=== PATIENT | female | born 1970 | race Caucasian/White ===

== ENCOUNTER → 2019-06-26 | Outpatient (CLI) | payer OTHER ==
--- NOTE | 2019-07-05 02:23 | ECWPNPC ---
PATIENT NAME: JAMMIE SAMUELS : 1970 GENDER: FEMALE VISIT DATE: 06/26/2019 DISCHARGE DATE: 06/26/19 1621 VISIT LOCKED DATE TIME: PHYSICIAN: LELIA KIRK MD RESOURCE: LELIA KIRK MD REASON FOR APPOINTMENT 1. LOW BACK & LEFT LEG HISTORY OF PRESENT ILLNESS HISTORY OF PRESENT ILLNESS: PAIN THE PATIENT DESCRIBES THE PAIN... 48 YEAR OLD FEMALE PATIENT WITH A HISTORY OF LOW BACK AND LEG PAIN. THE PATIENT DESCRIBES THE PAIN SHARP, STABBING, SHOOTING, DAILY, AND CONTINUOUS WITH A PAIN SCORE OF 7-9/10 DEPENDING ON PHYSICAL ACTIVITY. THE PATIENT STATES HER PAIN BEGINS IN HER LOW BACK AND RADIATES DOWN MAINLY HER LEFT LEG AND INTO HER FEET WITH TINGLING, "NEEDLES," AND BURNING SENSATIONS. THE PATIENT SAYS HER PAIN SPONTANEOUSLY BEGAN AROUND A YEAR AGO. THE PATIENT STATES HER PAIN IS AFFECTING HER ABILITY TO PERFORM HER DAILY ACTIVITIES SUCH HANGING LAUNDRY, CLEANING HER HOUSE, MAKING HER BED, MOPPING, AND SWEEPING. THE PATIENT SAYS SHE HAS BEEN USING ALEVE AND TYLENOL FOR PAIN RELIEF, HOWEVER THEY ARE NO LONGER HELPING MUCH ANYMORE. PATIENT DENIES UNEXPLAINABLE WEIGHT LOSS, FEVER, CHILLS, NEW CHANGES ON HER URINARY OR BOWEL CONTROL. FALL RISK SCREENING: SCREENING :NO FALLS REPORTED IN THE LAST YEAR CURRENT MEDICATIONS TAKING TYLENOL 325 MG TABLET 1 TABLET NEEDED ORALLY EVERY 4 HRS TAKING ALEVE 220 MG TABLET 1 TABLET WITH FOOD OR MILK NEEDED ORALLY EVERY 12 HRS MEDICATION LIST REVIEWED AND RECONCILED WITH THE PATIENT PAST MEDICAL HISTORY HYPERTENSION ALLERGIES N.K.D.A. SURGICAL HISTORY TUBAL LIGATION 09/1992 TONSILLECTOMY, ADNOID REMOVAL SURGICAL REMOVAL OF TEETH 03/2008 FAMILY HISTORY FATHER: 76 YRS, DIAGNOSED WITH DIABETES, HEART DISEASE, CANCER MOTHER: 74 YRS, CANCER SIBLINGS: ALIVE SOCIAL HISTORY GENERAL: TOBACCO USE ARE YOU A:CURRENT SMOKER ARE YOU INTERESTED IN QUITTING?THINKING ABOUT QUITTING PREVIOUS QUIT ATTEMPTS?YES, WITHIN THE LAST 6 MONTHS. COUNSELED THE PATIENT ON SMOKING CESSATION, EDUCATION [id number]/28/2019 PATIENT COUNSELED ON THE DANGERS OF TOBACCO USE AND URGED TO QUIT:06/26/2019 EDUCATION LEVEL OF EDUCATION:HIGH SCHOOL NOT COMPLETED DIET: REGULAR. LANGUAGE LANGUAGES SPOKEN:ARGENTINE NEW PATIENT PAIN DIARY PATIENT DESCRIBES PAIN :ACHING, BURNING, HAVE IT ALL THE TIME, IT COMES AND GOES, SHOOTING FROM 0-10, WHAT LEVEL IS YOUR PAIN TODAY?7 PRECIPITATING FACTORS MOVEMENT, HOUSECLEANING, CARRYING THINGS ALLEVIATING FACTORS REST, SITTING DOWN IMPACT ON FUNCTION HAD TO QUIT JOB DUE TO PAIN IS THERE A CHANCE YOU COULD BE ?NO HAVE YOU BEEN SICK IN THE LAST WEEK (COLD, COUGH, FEVER, FLU, ETC)YES COUGH, BELIEVE IT IS DUE TO SMOKING DO YOU TAKE ANY BLOOD THINNERS?NO DO YOU HAVE ANY RASHES OR OPEN SORES?NO ANY CHANGE IN BOWEL OR BLADDER CONTROL?NO ARE YOU ALLERGIC TO SHELLFISH OR IV DYE?NO ARE YOU DIABETIC?NO DO YOU HAVE A PACEMAKER OR DEFIBRILLATOR?NO ANY NEW PROBLEMS WITH MEDICINES OR NEW ALLERGIESNO ANY NEW PATTERNS OF PAIN OR NUMBNESS?NO ANY CHANGE IN YOUR MEDICAL CONDITION?NO HAVE YOU FALLEN IN THE LAST 6 MONTHS?YES TRIPPED, BRUISED KNEE, NO REPORT TO ED DO YOU USE ANY TYPE OF TOBACCO (SMOKE, SMOKELESS, CHEW, ETC.)YES ARE YOU ABUSED, NEGLECTED, OR IN AN UNSAFE ENVIRONMENT?NO DO YOU HAVE THOUGHTS OF HURTING YOURSELF OR SOMEONE ELSE?NO DO YOU NEED ANY PRESCRIPTIONS?NO DO YOU HAVE ANY OTHER QUESTIONS OR CONCERNS?NO EXERCISE: NONE, NO REGULAR EXERCISE. LEARNING BARRIERS / SPECIAL NEEDS BARRIERS TO LEARNING?NO HEARING IMPAIRED?NO VISION IMPAIRED?YES COGNITIVELY IMPAIRED?YES LEARNING DISABILITIES READINESS TO LEARN?YES LEARNING PREFERENCES?NO LEARNING CAPABILITIES PRESENT?YES PAIN CLINIC PFS, CLERGY, PUBLIC HEALTH REFERRALS WAS THE PROVIDER NOTIFIED OF ANY PERTINENT INFO?YES HAS THE PATIENT BEEN EDUCATED REGARDING HIS/HER PLAN OF CARE?YES HAS THE PATIENT BEEN EDUCATED REGARDING PAIN, THE RISK FOR PAIN, THE IMPORTANCE OF EFFECTIVE PAIN MANAGEMENT, AND THE PAIN ASSESSMENT PROCESS?YES LATEX QUESTIONNAIRE LATEX ALLERGY : HAVE YOU EVER DEVELOPED ANY TYPE OF REACTION AFTER HANDLING LATEX PRODUCTS SUCH RUBBER GLOVES, CONDOMS, DIAPHRAGMS, BALLOONS, SOCKS, OR UNDERWEAR?NO LATEX ALLERGY : HAVE YOU EVER DEVELOPED ANY TYPE OF REACTION DURING OR AFTER DENTAL APPOINTMENT, VAGINAL/RECTAL EXAMINATION, SURGICAL PROCEDURE, OR ANY OTHER EXPOSURE?NO LATEX RISK : HAVE YOU EVER HAD ANY DIFFICULTY BREATHING OR HIVES AFTER EATING OR HANDLING ANY FRUITS, OR VEGETABLES; SUCH KIWI, BANANAS, STONE FRUITS, OR CHESTNUTSNO LATEX RISK : DO YOU HAVE A PREVIOUS PERSONAL HISTORY OF MORE THAN NINE SURGERIES, SPINA BIFIDA, OR REPEATED CATHERIZATIONS? NO LATEX RISK : ARE YOU FREQUENTLY EXPOSED TO LATEX PRODUCTS IN YOUR OCCUPATION?NO DATE ASKED : 06/26/2019 CAFFEINE CAFFEINE USE?YES 2-3 CUPS PER DAY ADVANCE DIRECTIVE ADVANCE DIRECTIVE DISCUSSED WITH PATIENT:YES PT STATES THAT SHE DOES NOT HAVE ANY ADVANCED DIRECTIVES AT THIS TIME AND DECLINES ASSISTANCE AT THIS TIME MARITAL STATUS: SINGLE. OCCUPATION: [employer]. HOSPITALIZATION/MAJOR DIAGNOSTIC PROCEDURE NO HOSPITALIZATION HISTORY. REVIEW OF SYSTEMS REVIEWED BY: PROVIDER: LELIA KIRK MD . CONSTITUTIONAL: ANY CHANGE IN YOUR MEDICAL CONDITION? NO . CHILLS NO . FEVER NO . INFECTION: DO YOU HAVE NEW INFECTIONS? NO . DO YOU HAVE HISTORY OF MRSA? NO . MUSCULOSKELETAL: ANY NEW PATTERNS OF PAIN OR NUMBNESS? PAIN FIRST STARTED IN MAY OF 2018, LOW BACK AND GOES DOWN LEFT LEG INITALLY AND NOW IS RADIATING DOWN BOTH LEGS, NUMBNESS AND BURNING . GASTROENTEROLOGY: ANY NEW CHANGE IN BOWEL CONTROL? NO . GENITOURINARY: ANY NEW CHANGE IN BLADDER CONTROL? NO . IS THERE A CHANCE YOU COULD BE ? NO . HEMATOLOGY/LYMPH: DO YOU TAKE ANY BLOOD THINNERS? (FOR EXAMPLE- COUMADIN, PLAVIX, AGGRENOX, PLATEL, PRADAXA, OR XARELTO) NO . WHEN WAS YOUR LAST DOSE? DATE: TIME: . NEUROLOGY: HAVE YOU FALLEN IN THE PAST 12 MONTHS? NO . ANY NEW EXTREMITY NUMBNESS OR WEAKNESS? NO . CARDIOLOGY: DO YOU HAVE A PACEMAKER OR DEFIBRILLATOR? NO . RESPIRATORY: HAVE YOU BEEN SICK IN THE PAST WEEK? NO . FEVER NO . FLU LIKE SYMPTOMS? NO . COUGH NO . INTEGUMENTARY: DO YOU HAVE ANY RASHES OR OPEN SORES? NO . ALLERGIC/IMMUNO: ARE YOU ALLERGIC TO IV DYE? NO . ANY NEW ALLERGIES? NO . PSYCHIATRIC: DO YOU HAVE THOUGHTS OF HURTING YOURSELF OR SOMEONE ELSE? NO . ARE YOU ABUSED, NEGLECTED, OR IN AN UNSAFE ENVIRONMENT? NO . ENDOCRINOLOGY: ARE YOU DIABETIC? NO . OTHER: DO YOU NEED ANY PRESCRIPTIONS? NO . IF YES, PLEASE LIST: ____ . ANY NEW PROBLEMS WITH YOUR MEDICATIONS? NO . WHEN DID YOU LAST EAT? ____ . WHEN DID YOU LAST DRINK? ____ . WHAT DID YOU LAST DRINK? ____ . NAME OF PERSON DRIVING YOU HOME? ____ . DO YOU HAVE ANY OTHER QUESTIONS OR CONCERNS PT STATES THAT SHE IS GOING FOR SURGICAL CONSULTATION AT [facility] ON April WITH MD MCDONALD . VITAL SIGNS WT 176.8 LBS, HT 64 IN, BMI 30.34 INDEX, BP 157/76 MM HG, HR 87 /MIN, RR 16 /MIN, TEMP 97.7 F, OXYGEN SAT % 97%, SAFE IN ENV? (Y/N) Y, NA INITIALS SC 14:58, REVIEWED BY: MARGARITA. EXAMINATION GENERAL EXAMINATION: PATIENT IS ALERT O X 3 AND COOPERATIVE. LUNGS CLEAR, TO AUSCULTATION. HEART: NO MURMURS OR GALLOPS; FACIAL CRANIAL NERVES ARE GROSSLY NORMAL. GOOD SYMMETRY OF FACIAL MUSCLE MOVEMENT. NORMAL VISUAL KABA. PATIENT STANDS WITH CURVATURE IN HER BACK AND WHEN SHE TRIES TO STRAIGHTEN, SHE EXPERIENCES PAIN THROUGH HER BACK. TENDERNESS IN THE LOW BACK AREA, ESPECIALLY ON THE LEFT SIDE. LEFT LEG IS WEAKER AT EXTENSION AND FLEXION. STRAIGHT LEG RAISE OF THE LEFT LEG IS POSITIVE AT 30 DEGREES FOR RADICULOPATHY. MRI OF THE LUMBAR SPINE DONE ON 03/19/2019 SHOWS SEVERE SPINAL STENOSIS AT L4-L5, HYPERTROPHIC LIGAMENTUM FLAVUM, AND EDEMA OVER THE FACET JOINT AT MULTIPLE LEVELS. ASSESSMENTS INTERVERTEBRAL DISC DISORDER WITH RADICULOPATHY OF LUMBAR REGION - M51.16 (PRIMARY) INTERVERTEBRAL DISC DISORDER WITH RADICULOPATHY OF LUMBOSACRAL REGION - M51.17 SPINAL STENOSIS OF LUMBAR REGION, UNSPECIFIED WHETHER NEUROGENIC CLAUDICATION PRESENT - M48.061 SPONDYLOSIS OF LUMBAR REGION WITHOUT MYELOPATHY OR RADICULOPATHY - M47.816 SPONDYLOSIS OF LUMBOSACRAL REGION WITHOUT MYELOPATHY OR RADICULOPATHY - M47.817 TREATMENT INTERVERTEBRAL DISC DISORDER WITH RADICULOPATHY OF LUMBAR REGION CLINICAL NOTES: WE DISCUSSED SEVERAL ISSUES WITH MS. SAMUELS'S PAIN MANAGEMENT CASE. THE PATIENT SAYS SHE IS BEING SEEN AT ANOTHER CLINIC SHE IS PLANNING TO HAVE SPINE SURGERY DONE. I DISCUSSED WITH THE PATIENT THAT SHE MAY BE A CANDIDATE FOR A LUMBAR EPIDURAL, HOWEVER THE PATIENT PREFERS NOT TO DO ANY INJECTION THERAPY AT THIS TIME. I EXPLAINED TO THE PATIENT THAT OUR CLINIC IS MAINLY INJECTION THERAPY, THEREFORE I AM REFERRING THE PATIENT TO PALLIATIVE CARE PROGRAM TO CONSIDER CONTINUING MEDICATION MANAGEMENT FOR HER. I STARTED THE PATIENT ON GABAPENTIN 300 MG AND PROVIDED A SCHEDULE FOR HER TO SLOWLY INCREASE THE MEDICATION UP TO 3 TABLETS DAILY, IN ORDER TO AVOID ANY ADVERSE SIDE EFFECTS. I ADVISED THE PATIENT TO CALL TO BE SEEN FOR INJECTION THERAPY IN THE FUTURE. INSTRUCTIONS WERE GIVEN, QUESTIONS WERE ANSWERED, PATIENT REPORTS UNDERSTANDING AND AGREES WITH THE PLAN. I, CL ALCARAZ, DOCUMENTED THE ABOVE INFORMATION ACTING A SCRIBE FOR DR. KIRK. I HAVE REVIEWED THE ABOVE DOCUMENT, WRITTEN BY CL DACOSTAIBNichole AND I VERIFY THAT IT IS ACCURATE. DEAR EDUIN DUARTE: THANK YOU FOR YOUR KIND REFERRAL OF JAMMIE SAMUELS. IF YOU WANT TO DISCUSS HER CASE WITH ME PLEASE CALL ME AT THE PAIN CENTER AT [phone]. SINCERELY, LELIA KIRK MD PAIN MEDICINE . OTHERS START GABAPENTIN CAPSULE, 300 MG, 1 CAPSULE, ORALLY, THREE TIMES DAILY MDD3, 30 DAY(S), 90, REFILLS 1 NOTES: PRINTED MATERIAL ON GABAPENTIN, REVIEWED WITH PT . PROCEDURE CODES FA211 ESTABILISHED PATIENT [facility] FACILITY CHARGE [id number] CURRENT MEDS W/DOSAGES DOCUMENTED G8730 PAIN ASSESS POS TOOL F/U PLAN DOC DISPOSITION & COMMUNICATION FOLLOW UP REASON: REFER TO PALLIATIVE CARE FOR MED MANAGE ELECTRONICALLY SIGNED BY LELIA KIRK MD, MD ON 07/04/2019 AT 11:20 AM EDT DISCLAIMER : THIS IS A VISIT SUMMARY EXTRACTED FROM THE [employer] CHART. IT IS NOT A COPY OF THE [employer] PROGRESS NOTE. JOHANNAD
== END ==
LOC: M PAIN 14:45
PROVIDERS: ATTEND Anesthesiology
DX: M51.16 Intervertebral disc disorders with radiculopathy, lumbar region (principal); M51.17 Intervertebral disc disorders with radiculopathy, lumbosacral region; G89.29 Other chronic pain; M48.061 Spinal stenosis, lumbar region without neurogenic claudication; M47.816 Spondylosis without myelopathy or radiculopathy, lumbar region; M47.817 Spondylosis without myelopathy or radiculopathy, lumbosacral region; I10 Essential (primary) hypertension; F17.210 Nicotine dependence, cigarettes, uncomplicated; Z79.899 Other long term (current) drug therapy

== ENCOUNTER 2022-02-28 12:44 | Inpatient (IN) | payer OTHER ==
[2022-02-28 13:49] LABS: BASO # 0.1 10^3/uL (0.0-0.2); BASO % 0.4 % (0.0-1.0); EOS % 0.1 % (0.0-3.0); HEMATOCRIT 40.8 % (36.0-47.0); HEMOGLOBIN 13.3 g/dl (12.0-15.5); LYMPH # 0.9 10^3/uL (1.5-5.0); LYMPH % 4.9 % (24.0-44.0); MEAN CORPUSCULAR HEMOGLOBIN 32.5 pg (27.0-33.0); MEAN CORPUSCULAR HGB CONC 32.6 g/dl (32.0-36.5); MEAN CORPUSCULAR VOLUME 99.8 fl (80.0-96.0); MONO # 1.1 10^3/uL (0.0-0.8); MONO % 5.6 % (2.0-8.0); NEUTROPHILS # 17.1 10^3/uL (1.5-8.5); NEUTROPHILS % 88.4 % (36.0-66.0); PLATELET COUNT, AUTOMATED 414 10^3/uL (150-450); RED BLOOD COUNT 4.09 10^6/uL (4.00-5.40); WHITE BLOOD COUNT 19.3 10^3/uL (4.0-10.0)
[2022-02-28] MEDS ORDERED: LISI20TA33 PO (14:05)
[2022-02-28] MEDS ORDERED: JARD1TAB PO (14:05)
[2022-02-28] MEDS ORDERED: NICO1DIS12 TD (14:05)
[2022-02-28] MEDS ORDERED: AMLO1TAB25 PO (14:05)
[2022-02-28] MEDS ORDERED: HYDR-3363 PO (14:05)
[2022-02-28] MEDS ORDERED: MELA5TAB7 PO (14:05)
[2022-02-28] MEDS ORDERED: ATOR80TA59 PO (14:05)
[2022-02-28] MEDS ORDERED: INSU100I34 SQ (14:05)
[2022-02-28] MEDS ORDERED: GABA-283 PO (14:05)
[2022-02-28] MEDS ORDERED: ASPI81TA26 PO (14:05)
[2022-02-28] MEDS ORDERED: HOME MED LIST COMPLETE! XX SCH (14:10)
[2022-02-28 14:12] LABS: CALCIUM LEVEL 11.1 MG/DL (8.5-10.1); CREATININE FOR GFR 1.29 MG/DL (0.55-1.30); GLOMERULAR FILTRATION RATE 46.4 (>51); POTASSIUM SERUM 5.5 MEQ/L (3.5-5.1)
[2022-02-28 14:21] LABS: RSV AMPLIFICATION NEGATIVE (NEGATIVE)
[2022-02-28] MEDS ORDERED: NS 1,000 ML IV ONE (14:30)
[2022-02-28] MEDS ORDERED: ISOVUE-370 76% 100ML VIAL As Ordered ONE (15:07)
[2022-02-28] MEDS ORDERED: GLUCAGON INJ 1MG VIAL SC PRN (20:25)
[2022-02-28] MEDS ORDERED: DEXTROSE 50% 50 ML SYRINGE IV PRN (20:25)
[2022-02-28] MEDS ORDERED: GLUCOSE 4GM CHEW TABLET PO PRN (20:25)
[2022-02-28] MEDS: D5W/0.45% SODIUM CHLORIDE 1,000 ML IV SCH (21:35)
[2022-02-28] MEDS: INSULIN LISPRO (NovoLOG) PER UNIT SC SCH (21:41)
[2022-02-28 23:10] VITALS: BP 154/88
[2022-03-01] MEDS: INSULIN LISPRO (NovoLOG) PER UNIT SC SCH ×4 (00:52→18:02)
[2022-03-01 04:00] VITALS: BP 166/86
[2022-03-01] MEDS: D5W/0.45% SODIUM CHLORIDE 1,000 ML IV SCH ×2 (07:41→17:41)
[2022-03-01 08:03] VITALS: BP 167/72
[2022-03-01 08:17] LABS: HEMATOCRIT 41.7 % (36.0-47.0); HEMOGLOBIN 13.4 g/dl (12.0-15.5); MEAN CORPUSCULAR HEMOGLOBIN 31.6 pg (27.0-33.0); MEAN CORPUSCULAR HGB CONC 32.1 g/dl (32.0-36.5); MEAN CORPUSCULAR VOLUME 98.3 fl (80.0-96.0); PLATELET COUNT, AUTOMATED 363 10^3/uL (150-450); RED BLOOD COUNT 4.24 10^6/uL (4.00-5.40); WHITE BLOOD COUNT 14.2 10^3/uL (4.0-10.0)
[2022-03-01 08:33] LABS: HEMOGLOBIN A1c 8.5 %
[2022-03-01 09:09] LABS: BLOOD UREA NITROGEN 34 MG/DL (7-18); CALCIUM LEVEL 10.6 MG/DL (8.5-10.1); CARBON DIOXIDE LEVEL 25 MEQ/L (21-32); CHLORIDE LEVEL 114 MEQ/L (98-107); CHOLESTEROL LEVEL 179 MG/DL (<200); CHOLESTEROL RISK RATIO 3.509 (<5); CREATININE FOR GFR 0.94 MG/DL (0.55-1.30); GLOMERULAR FILTRATION RATE > 60.0 (>51); GLUCOSE, FASTING 169 MG/DL (70-100); HDL CHOLESTEROL 51 MG/DL (>40); LDL CHOLESTEROL 106 MG/DL (<100); NON-HDL-C 128 MG/DL; SODIUM LEVEL 150 MEQ/L (136-145); TRIGLYCERIDES LEVEL 109 MG/DL (<150)
[2022-03-01 09:26] VITALS: BP 148/82
[2022-03-01 13:02] VITALS: BP 138/78
[2022-03-01 16:14] VITALS: BP 138/82
[2022-03-01 20:00] VITALS: BP 150/82
[2022-03-02] VITALS: BP 152/82
[2022-03-02] MEDS: INSULIN LISPRO (NovoLOG) PER UNIT SC SCH ×4 (00:50→17:32)
[2022-03-02] MEDS: D5W/0.45% SODIUM CHLORIDE 1,000 ML IV SCH (03:06)
[2022-03-02 04:00] VITALS: BP 154/80
[2022-03-02 06:39] LABS: HEMOGLOBIN 13.3 g/dl (12.0-15.5); MEAN CORPUSCULAR HEMOGLOBIN 31.8 pg (27.0-33.0); MEAN CORPUSCULAR HGB CONC 32.4 g/dl (32.0-36.5); MEAN CORPUSCULAR VOLUME 98.1 fl (80.0-96.0); PLATELET COUNT, AUTOMATED 358 10^3/uL (150-450); RED BLOOD COUNT 4.18 10^6/uL (4.00-5.40); WHITE BLOOD COUNT 12.1 10^3/uL (4.0-10.0)
[2022-03-02 07:05] LABS: BLOOD UREA NITROGEN 20 MG/DL (7-18); CALCIUM LEVEL 10.1 MG/DL (8.5-10.1); CARBON DIOXIDE LEVEL 23 MEQ/L (21-32); CHLORIDE LEVEL 117 MEQ/L (98-107); CREATININE FOR GFR 0.67 MG/DL (0.55-1.30); GLOMERULAR FILTRATION RATE > 60.0 (>51); GLUCOSE, FASTING 133 MG/DL (70-100); POTASSIUM SERUM 3.5 MEQ/L (3.5-5.1); SODIUM LEVEL 150 MEQ/L (136-145)
[2022-03-02 08:00] VITALS: BP 158/100
[2022-03-02] MEDS: ASPIRIN 300 MG SUPP PR SCH (08:38)
[2022-03-02] MEDS: KCL 20MEQ IN D5/0.45NS 1000ML 1,000 ML IV SCH ×2 (08:38→17:32)
[2022-03-02 12:00] VITALS: BP 166/94
[2022-03-02 16:00] VITALS: BP 152/98
[2022-03-02 20:00] VITALS: BP 164/102
[2022-03-03] VITALS: BP 148/100
[2022-03-03] MEDS: INSULIN LISPRO (NovoLOG) PER UNIT SC SCH ×4 (00:23→17:43)
[2022-03-03] MEDS: KCL 20MEQ IN D5/0.45NS 1000ML 1,000 ML IV SCH (02:52)
[2022-03-03 04:00] VITALS: BP 168/110
[2022-03-03 05:45] LABS: HEMOGLOBIN 13.6 g/dl (12.0-15.5); MEAN CORPUSCULAR HEMOGLOBIN 32.3 pg (27.0-33.0); MEAN CORPUSCULAR HGB CONC 33.2 g/dl (32.0-36.5); MEAN CORPUSCULAR VOLUME 97.4 fl (80.0-96.0); PLATELET COUNT, AUTOMATED 312 10^3/uL (150-450); RED BLOOD COUNT 4.21 10^6/uL (4.00-5.40); WHITE BLOOD COUNT 10.9 10^3/uL (4.0-10.0)
[2022-03-03 06:12] LABS: BLOOD UREA NITROGEN 11 MG/DL (7-18); CALCIUM LEVEL 9.6 MG/DL (8.5-10.1); CARBON DIOXIDE LEVEL 24 MEQ/L (21-32); CHLORIDE LEVEL 115 MEQ/L (98-107); CREATININE FOR GFR 0.61 MG/DL (0.55-1.30); GLOMERULAR FILTRATION RATE > 60.0 (>51); GLUCOSE, FASTING 144 MG/DL (70-100); POTASSIUM SERUM 3.4 MEQ/L (3.5-5.1); SODIUM LEVEL 145 MEQ/L (136-145)
[2022-03-03] MEDS: KCL 40MEQ IN D5/0.45NS 1000ML 1,000 ML IV SCH ×2 (07:41→17:31)
[2022-03-03] MEDS: ASPIRIN 300 MG SUPP PR SCH (08:12)
[2022-03-03 09:13] VITALS: BP 166/108
[2022-03-03 12:36] VITALS: BP 160/104
[2022-03-03 15:53] VITALS: BP 146/88
[2022-03-03 16:32] LABS: BLOOD UREA NITROGEN 9 MG/DL (7-18); CALCIUM LEVEL 9.7 MG/DL (8.5-10.1); CARBON DIOXIDE LEVEL 24 MEQ/L (21-32); CHLORIDE LEVEL 115 MEQ/L (98-107); GLOMERULAR FILTRATION RATE > 60.0 (>51); GLUCOSE, FASTING 149 MG/DL (70-100); POTASSIUM SERUM 3.7 MEQ/L (3.5-5.1); SODIUM LEVEL 145 MEQ/L (136-145)
[2022-03-03 20:00] VITALS: BP 114/59
[2022-03-04] VITALS: BP 121/72
[2022-03-04 04:00] VITALS: BP 151/79
[2022-03-04 06:24] LABS: HEMATOCRIT 39.9 % (36.0-47.0); HEMOGLOBIN 13.4 g/dl (12.0-15.5); MEAN CORPUSCULAR HEMOGLOBIN 32.1 pg (27.0-33.0); MEAN CORPUSCULAR HGB CONC 33.6 g/dl (32.0-36.5); MEAN CORPUSCULAR VOLUME 95.5 fl (80.0-96.0); PLATELET COUNT, AUTOMATED 308 10^3/uL (150-450); RED BLOOD COUNT 4.18 10^6/uL (4.00-5.40); WHITE BLOOD COUNT 11.7 10^3/uL (4.0-10.0)
[2022-03-04 06:48] LABS: BLOOD UREA NITROGEN 9 MG/DL (7-18); CALCIUM LEVEL 9.1 MG/DL (8.5-10.1); CARBON DIOXIDE LEVEL 24 MEQ/L (21-32); CHLORIDE LEVEL 112 MEQ/L (98-107); CREATININE FOR GFR 0.58 MG/DL (0.55-1.30); GLOMERULAR FILTRATION RATE > 60.0 (>51); GLUCOSE, FASTING 160 MG/DL (70-100); POTASSIUM SERUM 4.1 MEQ/L (3.5-5.1); SODIUM LEVEL 143 MEQ/L (136-145)
[2022-03-04] MEDS: INSULIN LISPRO (NovoLOG) PER UNIT SC SCH ×5 (06:51→23:53)
[2022-03-04] MEDS: KCL 40MEQ IN D5/0.45NS 1000ML 1,000 ML IV SCH (06:51)
[2022-03-04 07:30] VITALS: BP 148/52
[2022-03-04] MEDS: ASPIRIN 300 MG SUPP PR SCH (08:27)
[2022-03-04] MEDS ORDERED: LIDOCAINE 1% MDV 20ML VIAL As Ordered ONE (09:10)
[2022-03-04 11:45] VITALS: BP 162/42
[2022-03-04 16:08] VITALS: BP 142/78
[2022-03-04] MEDS: SODIUM CHLORIDE 0.9% INJ 10 ML SYR IV SCH (17:33)
[2022-03-04] MEDS ORDERED: MULTIVITAMIN -ADULT INJECTION 10 ML, ZINC/COPPER/MANGANESE/SELENIUM 1 ML in AMINO AC/EL... IV SCH (18:00)
[2022-03-04] MEDS ORDERED: FAT EMULSION IV 20% 500 ML IV SCH (18:00)
[2022-03-05] VITALS: BP 148/88
[2022-03-05 04:00] VITALS: BP 140/90
[2022-03-05 05:13] LABS: HEMATOCRIT 42.5 % (36.0-47.0); HEMOGLOBIN 14.1 g/dl (12.0-15.5); MEAN CORPUSCULAR HEMOGLOBIN 31.5 pg (27.0-33.0); MEAN CORPUSCULAR HGB CONC 33.2 g/dl (32.0-36.5); MEAN CORPUSCULAR VOLUME 94.9 fl (80.0-96.0); PLATELET COUNT, AUTOMATED 339 10^3/uL (150-450); RED BLOOD COUNT 4.48 10^6/uL (4.00-5.40); WHITE BLOOD COUNT 13.7 10^3/uL (4.0-10.0)
[2022-03-05 05:33] LABS: BLOOD UREA NITROGEN 11 MG/DL (7-18); CALCIUM LEVEL 9.7 MG/DL (8.5-10.1); CARBON DIOXIDE LEVEL 25 MEQ/L (21-32); CHLORIDE LEVEL 109 MEQ/L (98-107); CREATININE FOR GFR 0.62 MG/DL (0.55-1.30); GLOMERULAR FILTRATION RATE > 60.0 (>51); GLUCOSE, FASTING 192 MG/DL (70-100); SODIUM LEVEL 140 MEQ/L (136-145)
[2022-03-05] MEDS: INSULIN LISPRO (NovoLOG) PER UNIT SC SCH ×3 (06:13→17:26)
[2022-03-05] MEDS: SODIUM CHLORIDE 0.9% INJ 10 ML SYR IV SCH ×2 (06:14→17:27)
[2022-03-05 08:00] VITALS: BP 140/46
[2022-03-05] MEDS: ASPIRIN 300 MG SUPP PR SCH (09:00)
[2022-03-05] MEDS ORDERED: hydrALAZINE 20MG/ML 1ML VIAL (J0360 PER 20MG) IV PRN (09:15)
[2022-03-05 12:00] VITALS: BP 130/62
[2022-03-05] MEDS: MYCOLOG CREAM 15 GM (NYSTATIN/TRIAMCINOLONE) TOP SCH ×2 (14:39→21:29)
[2022-03-05 16:00] VITALS: BP 140/62
[2022-03-05] MEDS ORDERED: FAT EMULSION IV 20% 500 ML IV SCH (18:00)
[2022-03-05] MEDS ORDERED: AMINO AC/ELECTROLYTE/DEX/CALC 2,000 ML IV SCH (18:00)
[2022-03-05 20:00] VITALS: BP 132/83
[2022-03-06] VITALS: BP 131/75
[2022-03-06] MEDS: INSULIN LISPRO (NovoLOG) PER UNIT SC SCH ×4 (00:30→18:57)
[2022-03-06 04:00] VITALS: BP 159/62
[2022-03-06 04:52] LABS: HEMATOCRIT 40.2 % (36.0-47.0); HEMOGLOBIN 13.7 g/dl (12.0-15.5); MEAN CORPUSCULAR HGB CONC 34.1 g/dl (32.0-36.5); MEAN CORPUSCULAR VOLUME 93.9 fl (80.0-96.0); PLATELET COUNT, AUTOMATED 311 10^3/uL (150-450); RED BLOOD COUNT 4.28 10^6/uL (4.00-5.40); WHITE BLOOD COUNT 13.7 10^3/uL (4.0-10.0)
[2022-03-06 05:15] LABS: CALCIUM LEVEL 9.2 MG/DL (8.5-10.1); CARBON DIOXIDE LEVEL 25 MEQ/L (21-32); CHLORIDE LEVEL 108 MEQ/L (98-107); CREATININE FOR GFR 0.56 MG/DL (0.55-1.30); GLOMERULAR FILTRATION RATE > 60.0 (>51); GLUCOSE, FASTING 191 MG/DL (70-100); POTASSIUM SERUM 3.7 MEQ/L (3.5-5.1); SODIUM LEVEL 140 MEQ/L (136-145)
[2022-03-06 05:16] LABS: BLOOD UREA NITROGEN 19 MG/DL (7-18)
[2022-03-06] MEDS: SODIUM CHLORIDE 0.9% INJ 10 ML SYR IV SCH ×2 (05:46→18:58)
[2022-03-06 07:26] VITALS: BP 113/66
[2022-03-06] MEDS: ASPIRIN 300 MG SUPP PR SCH (09:00)
[2022-03-06] MEDS: MYCOLOG CREAM 15 GM (NYSTATIN/TRIAMCINOLONE) TOP SCH ×2 (09:41→21:05)
[2022-03-06 16:30] VITALS: BP 142/58
[2022-03-06] MEDS ORDERED: FAT EMULSION IV 20% 500 ML IV SCH (18:00)
[2022-03-06] MEDS ORDERED: INSULIN LISPRO (NovoLOG) PER UNIT SC SCH (18:00)
[2022-03-06] MEDS ORDERED: AMINO AC/ELECTROLYTE/DEX/CALC 2,000 ML IV SCH (18:00)
[2022-03-06 20:00] VITALS: BP 162/81
[2022-03-07] MEDS: INSULIN LISPRO (NovoLOG) PER UNIT SC SCH ×4 (00:33→18:35)
[2022-03-07 04:00] VITALS: BP 135/81
[2022-03-07 05:27] LABS: HEMOGLOBIN 14.2 g/dl (12.0-15.5); MEAN CORPUSCULAR HGB CONC 33.8 g/dl (32.0-36.5); MEAN CORPUSCULAR VOLUME 94.6 fl (80.0-96.0); PLATELET COUNT, AUTOMATED 291 10^3/uL (150-450); RED BLOOD COUNT 4.44 10^6/uL (4.00-5.40); WHITE BLOOD COUNT 12.8 10^3/uL (4.0-10.0)
[2022-03-07 05:49] LABS: BLOOD UREA NITROGEN 21 MG/DL (7-18); CALCIUM LEVEL 9.5 MG/DL (8.5-10.1); CARBON DIOXIDE LEVEL 24 MEQ/L (21-32); CHLORIDE LEVEL 110 MEQ/L (98-107); CREATININE FOR GFR 0.62 MG/DL (0.55-1.30); GLOMERULAR FILTRATION RATE > 60.0 (>51); GLUCOSE, FASTING 236 MG/DL (70-100); SODIUM LEVEL 142 MEQ/L (136-145)
[2022-03-07] MEDS: SODIUM CHLORIDE 0.9% INJ 10 ML SYR IV SCH ×2 (05:59→18:36)
[2022-03-07 08:00] VITALS: BP 134/76
[2022-03-07] MEDS: ASPIRIN 300 MG SUPP PR SCH (10:00)
[2022-03-07] MEDS: MYCOLOG CREAM 15 GM (NYSTATIN/TRIAMCINOLONE) TOP SCH ×2 (10:00→21:10)
[2022-03-07 12:47] VITALS: BP 136/74
[2022-03-07 15:50] VITALS: BP 152/92
[2022-03-07] MEDS ORDERED: FAT EMULSION IV 250 ML IV ONE (18:00)
[2022-03-07] MEDS ORDERED: MULTIVITAMIN -ADULT INJECTION 10 ML, ZINC/COPPER/MANGANESE/SELENIUM 1 ML in AMINO AC/EL... IV SCH (18:00)
[2022-03-07 22:00] VITALS: BP 140/98
[2022-03-07] MEDS ORDERED: diphenhydrAMINE 50MG/ML VIAL (J1200) IV ONE (22:50)
[2022-03-07] MEDS ORDERED: ACETAMINOPHEN *IV* 650 MG in IV 1 EA IV ONE (22:50)
[2022-03-08] MEDS: INSULIN LISPRO (NovoLOG) PER UNIT SC SCH ×5 (00:58→18:26)
[2022-03-08] MEDS: SODIUM CHLORIDE 0.9% INJ 10 ML SYR IV SCH ×2 (05:09→18:22)
[2022-03-08 05:51] LABS: HEMATOCRIT 41.5 % (36.0-47.0); MEAN CORPUSCULAR HEMOGLOBIN 31.8 pg (27.0-33.0); MEAN CORPUSCULAR HGB CONC 33.7 g/dl (32.0-36.5); MEAN CORPUSCULAR VOLUME 94.3 fl (80.0-96.0); PLATELET COUNT, AUTOMATED 289 10^3/uL (150-450); WHITE BLOOD COUNT 10.6 10^3/uL (4.0-10.0)
[2022-03-08 06:00] VITALS: BP 137/85
[2022-03-08 06:23] LABS: BLOOD UREA NITROGEN 22 MG/DL (7-18); CALCIUM LEVEL 9.5 MG/DL (8.5-10.1); CARBON DIOXIDE LEVEL 25 MEQ/L (21-32); CHLORIDE LEVEL 108 MEQ/L (98-107); CREATININE FOR GFR 0.63 MG/DL (0.55-1.30); GLOMERULAR FILTRATION RATE > 60.0 (>51); GLUCOSE, FASTING 191 MG/DL (70-100); POTASSIUM SERUM 4.1 MEQ/L (3.5-5.1); SODIUM LEVEL 141 MEQ/L (136-145)
[2022-03-08] MEDS: ASPIRIN 300 MG SUPP PR SCH (09:09)
[2022-03-08] MEDS: MYCOLOG CREAM 15 GM (NYSTATIN/TRIAMCINOLONE) TOP SCH ×2 (09:09→22:41)
[2022-03-08 14:00] VITALS: BP 128/80
[2022-03-08] MEDS ORDERED: AMINO AC/ELECTROLYTE/DEX/CALC 2,000 ML IV SCH (18:00)
[2022-03-08] MEDS ORDERED: FAT EMULSION IV 250 ML IV ONE (18:00)
[2022-03-08 22:00] VITALS: BP 137/78
[2022-03-09] MEDS: INSULIN LISPRO (NovoLOG) PER UNIT SC SCH ×4 (01:05→17:40)
[2022-03-09 05:55] LABS: HEMATOCRIT 42.8 % (36.0-47.0); HEMOGLOBIN 14.4 g/dl (12.0-15.5); MEAN CORPUSCULAR HEMOGLOBIN 31.6 pg (27.0-33.0); MEAN CORPUSCULAR HGB CONC 33.6 g/dl (32.0-36.5); MEAN CORPUSCULAR VOLUME 93.9 fl (80.0-96.0); PLATELET COUNT, AUTOMATED 252 10^3/uL (150-450); RED BLOOD COUNT 4.56 10^6/uL (4.00-5.40)
[2022-03-09 06:00] VITALS: BP 133/91
[2022-03-09] MEDS: SODIUM CHLORIDE 0.9% INJ 10 ML SYR IV SCH ×2 (06:06→17:40)
[2022-03-09 06:15] LABS: BLOOD UREA NITROGEN 23 MG/DL (7-18); CALCIUM LEVEL 9.6 MG/DL (8.5-10.1); CARBON DIOXIDE LEVEL 27 MEQ/L (21-32); CHLORIDE LEVEL 108 MEQ/L (98-107); CREATININE FOR GFR 0.66 MG/DL (0.55-1.30); GLOMERULAR FILTRATION RATE > 60.0 (>51); GLUCOSE, FASTING 250 MG/DL (70-100); SODIUM LEVEL 140 MEQ/L (136-145)
[2022-03-09] MEDS: MYCOLOG CREAM 15 GM (NYSTATIN/TRIAMCINOLONE) TOP SCH ×2 (09:18→20:13)
[2022-03-09] MEDS: ASPIRIN 300 MG SUPP PR SCH (09:18)
[2022-03-09] MEDS ORDERED: propofoL 200 MG/20 ML VIAL As Ordered ONE (11:50)
[2022-03-09] MEDS: SODIUM CHLORIDE 0.9% INJ 10 ML SYR IV PRN (12:48)
[2022-03-09 14:00] VITALS: BP 111/77
[2022-03-09 16:30] VITALS: BP 150/80
[2022-03-09] MEDS ORDERED: MORPHINE 10 MG/ML 1ML VIAL IV ONE (16:35)
[2022-03-09] MEDS ORDERED: PERCOCET 5MG/325MG TAB PEG ONE (16:40)
[2022-03-09] MEDS ORDERED: HYDROMORPHONE HCL 0.5 MG/ 0.5 ML SYRINGE (J1170 PER 1) IV ONE (17:00)
[2022-03-09] MEDS ORDERED: FAT EMULSION IV 250 ML IV ONE (18:00)
[2022-03-09] MEDS ORDERED: MULTIVITAMIN -ADULT INJECTION 10 ML, ZINC/COPPER/MANGANESE/SELENIUM 1 ML in AMINO AC/EL... IV SCH (18:00)
[2022-03-10] MEDS: INSULIN LISPRO (NovoLOG) PER UNIT SC SCH ×2 (01:03→07:28)
[2022-03-10 06:11] VITALS: BP 135/57
[2022-03-10] MEDS: SODIUM CHLORIDE 0.9% INJ 10 ML SYR IV SCH ×2 (06:49→17:05)
[2022-03-10 07:23] LABS: HEMATOCRIT 40.5 % (36.0-47.0); HEMOGLOBIN 13.8 g/dl (12.0-15.5); MEAN CORPUSCULAR HEMOGLOBIN 31.9 pg (27.0-33.0); MEAN CORPUSCULAR HGB CONC 34.1 g/dl (32.0-36.5); MEAN CORPUSCULAR VOLUME 93.5 fl (80.0-96.0); PLATELET COUNT, AUTOMATED 163 10^3/uL (150-450); RED BLOOD COUNT 4.33 10^6/uL (4.00-5.40); WHITE BLOOD COUNT 11.8 10^3/uL (4.0-10.0)
[2022-03-10 07:52] LABS: BLOOD UREA NITROGEN 19 MG/DL (7-18); CALCIUM LEVEL 9.2 MG/DL (8.5-10.1); CARBON DIOXIDE LEVEL 25 MEQ/L (21-32); CHLORIDE LEVEL 106 MEQ/L (98-107); CREATININE FOR GFR 0.66 MG/DL (0.55-1.30); GLOMERULAR FILTRATION RATE > 60.0 (>51); GLUCOSE, FASTING 264 MG/DL (70-100); POTASSIUM SERUM 3.9 MEQ/L (3.5-5.1); SODIUM LEVEL 136 MEQ/L (136-145)
[2022-03-10] MEDS: SODIUM CHLORIDE 0.9% INJ 10 ML SYR IV PRN ×2 (08:28→09:33)
[2022-03-10] MEDS: ASPIRIN 300 MG SUPP PR SCH (08:28)
[2022-03-10] MEDS: MYCOLOG CREAM 15 GM (NYSTATIN/TRIAMCINOLONE) TOP SCH ×2 (08:28→22:12)
[2022-03-10] MEDS ORDERED: KETOROLAC 30 MG/ML 1ML VIAL IV ONE (08:45)
[2022-03-10] MEDS ORDERED: PERCOCET 5MG/325MG TAB PEG ONE (09:00)
[2022-03-10 14:00] VITALS: BP 130/70
[2022-03-10] MEDS: NS 1,000 ML IV SCH (17:32)
[2022-03-10 22:00] VITALS: BP 133/71
[2022-03-11 06:00] VITALS: BP 155/92
[2022-03-11] MEDS: SODIUM CHLORIDE 0.9% INJ 10 ML SYR IV SCH ×2 (06:37→17:45)
[2022-03-11] MEDS: NS 1,000 ML IV SCH (06:50)
[2022-03-11 07:09] LABS: HEMATOCRIT 35.2 % (36.0-47.0); MEAN CORPUSCULAR HEMOGLOBIN 31.6 pg (27.0-33.0); MEAN CORPUSCULAR HGB CONC 33.2 g/dl (32.0-36.5); MEAN CORPUSCULAR VOLUME 95.1 fl (80.0-96.0); PLATELET COUNT, AUTOMATED 185 10^3/uL (150-450); WHITE BLOOD COUNT 11.9 10^3/uL (4.0-10.0)
[2022-03-11 07:19] LABS: HEMOGLOBIN 11.7 g/dl (12.0-15.5)
[2022-03-11 07:29] LABS: BLOOD UREA NITROGEN 23 MG/DL (7-18); CALCIUM LEVEL 8.7 MG/DL (8.5-10.1); CARBON DIOXIDE LEVEL 27 MEQ/L (21-32); CHLORIDE LEVEL 111 MEQ/L (98-107); CREATININE FOR GFR 0.64 MG/DL (0.55-1.30); GLOMERULAR FILTRATION RATE > 60.0 (>51); GLUCOSE, FASTING 208 MG/DL (70-100); POTASSIUM SERUM 4.3 MEQ/L (3.5-5.1); SODIUM LEVEL 143 MEQ/L (136-145)
[2022-03-11] MEDS ORDERED: KETOROLAC 30 MG/ML 1ML VIAL IV ONE (09:30)
[2022-03-11] MEDS ORDERED: PERCOCET 5MG/325MG TAB PEG PRN (10:45)
[2022-03-11] MEDS: LEVEMIR (INSULIN DETEMIR) 1 UNITS/0.01ML SC SCH (12:07)
[2022-03-11] MEDS: MYCOLOG CREAM 15 GM (NYSTATIN/TRIAMCINOLONE) TOP SCH ×2 (12:27→21:12)
[2022-03-11] MEDS: ASPIRIN 81 MG CHEW TABLET PEG SCH (12:27)
[2022-03-11] MEDS: PERCOCET 5MG/325MG TAB PEG ONE ×2 (12:28→12:31)
[2022-03-11] MEDS: SODIUM CHLORIDE 0.9% INJ 10 ML SYR IV PRN (12:28)
[2022-03-11 14:00] VITALS: BP 119/62
[2022-03-12] MEDS: SODIUM CHLORIDE 0.9% INJ 10 ML SYR IV SCH ×2 (05:18→17:20)
[2022-03-12 05:22] VITALS: BP 125/85
[2022-03-12] MEDS: LEVEMIR (INSULIN DETEMIR) 1 UNITS/0.01ML SC SCH (07:29)
[2022-03-12] MEDS: ASPIRIN 81 MG CHEW TABLET PEG SCH (08:05)
[2022-03-12] MEDS: MYCOLOG CREAM 15 GM (NYSTATIN/TRIAMCINOLONE) TOP SCH ×2 (08:05→20:47)
[2022-03-12] MEDS ORDERED: ASPIRIN 81 MG CHEW TABLET PEG SCH (09:00)
[2022-03-12 10:54] LABS: BASO # 0.1 10^3/uL (0.0-0.2); BASO % 0.3 % (0.0-1.0); EOS # 0.3 10^3/uL (0.0-0.5); EOS % 1.6 % (0.0-3.0); HEMOGLOBIN 11.9 g/dl (12.0-15.5); LYMPH # 1.6 10^3/uL (1.5-5.0); MEAN CORPUSCULAR HEMOGLOBIN 31.2 pg (27.0-33.0); MEAN CORPUSCULAR HGB CONC 33.1 g/dl (32.0-36.5); MEAN CORPUSCULAR VOLUME 94.2 fl (80.0-96.0); MONO % 8.4 % (2.0-8.0); NEUTROPHILS # 14.5 10^3/uL (1.5-8.5); NEUTROPHILS % 80.1 % (36.0-66.0); PLATELET COUNT, AUTOMATED 239 10^3/uL (150-450); RED BLOOD COUNT 3.82 10^6/uL (4.00-5.40); WHITE BLOOD COUNT 18.1 10^3/uL (4.0-10.0)
[2022-03-12 11:17] LABS: BLOOD UREA NITROGEN 20 MG/DL (7-18); CARBON DIOXIDE LEVEL 26 MEQ/L (21-32); CHLORIDE LEVEL 106 MEQ/L (98-107); CREATININE FOR GFR 0.57 MG/DL (0.55-1.30); GLOMERULAR FILTRATION RATE > 60.0 (>51); GLUCOSE, FASTING 199 MG/DL (70-100); POTASSIUM SERUM 3.9 MEQ/L (3.5-5.1); SODIUM LEVEL 139 MEQ/L (136-145)
[2022-03-12 11:22] LABS: MONO # 1.5 10^3/uL (0.0-0.8)
[2022-03-12 14:00] VITALS: BP 127/85
[2022-03-12] MEDS: METOCLOPRAMIDE INJ 10MG/2ML VIAL (J2765 PER 1) IV SCH ×2 (17:20→20:48)
[2022-03-12] MEDS: SODIUM CHLORIDE 0.9% INJ 10 ML SYR IV PRN (20:48)
[2022-03-12 20:56] VITALS: BP 133/85
[2022-03-13 06:00] VITALS: BP 132/87
[2022-03-13] MEDS: SODIUM CHLORIDE 0.9% INJ 10 ML SYR IV SCH ×2 (06:18→16:20)
[2022-03-13 06:46] LABS: HEMOGLOBIN 12.1 g/dl (12.0-15.5); MEAN CORPUSCULAR HGB CONC 33.6 g/dl (32.0-36.5); MEAN CORPUSCULAR VOLUME 95.2 fl (80.0-96.0); PLATELET COUNT, AUTOMATED 274 10^3/uL (150-450); RED BLOOD COUNT 3.78 10^6/uL (4.00-5.40); WHITE BLOOD COUNT 18.2 10^3/uL (4.0-10.0)
[2022-03-13 07:06] LABS: BLOOD UREA NITROGEN 16 MG/DL (7-18); CALCIUM LEVEL 9.5 MG/DL (8.5-10.1); CARBON DIOXIDE LEVEL 25 MEQ/L (21-32); CHLORIDE LEVEL 105 MEQ/L (98-107); CREATININE FOR GFR 0.62 MG/DL (0.55-1.30); GLOMERULAR FILTRATION RATE > 60.0 (>51); GLUCOSE, FASTING 177 MG/DL (70-100); POTASSIUM SERUM 4.1 MEQ/L (3.5-5.1); SODIUM LEVEL 141 MEQ/L (136-145)
[2022-03-13] MEDS: MYCOLOG CREAM 15 GM (NYSTATIN/TRIAMCINOLONE) TOP SCH ×2 (08:11→22:17)
[2022-03-13] MEDS: METOCLOPRAMIDE INJ 10MG/2ML VIAL (J2765 PER 1) IV SCH ×3 (08:11→22:17)
[2022-03-13] MEDS: ASPIRIN 81 MG CHEW TABLET PEG SCH (08:11)
[2022-03-13] MEDS: LEVEMIR (INSULIN DETEMIR) 1 UNITS/0.01ML SC SCH (08:11)
[2022-03-13 14:00] VITALS: BP 133/80
[2022-03-13] MEDS: AMPICILLIN SOD/SULBACTAM SOD 1.5 GM in D5W MINI-BAG PLUS 50 ML IV SCH (18:12)
[2022-03-13 22:00] VITALS: BP 128/84
[2022-03-14] MEDS: AMPICILLIN SOD/SULBACTAM SOD 1.5 GM in D5W MINI-BAG PLUS 50 ML IV SCH ×5 (00:21→23:43)
[2022-03-14] MEDS: SODIUM CHLORIDE 0.9% INJ 10 ML SYR IV SCH ×3 (05:18→19:02)
[2022-03-14 06:00] VITALS: BP 126/80
[2022-03-14 06:11] LABS: HEMATOCRIT 35.2 % (36.0-47.0); HEMOGLOBIN 11.9 g/dl (12.0-15.5); MEAN CORPUSCULAR HEMOGLOBIN 32.2 pg (27.0-33.0); MEAN CORPUSCULAR HGB CONC 33.8 g/dl (32.0-36.5); MEAN CORPUSCULAR VOLUME 95.4 fl (80.0-96.0); PLATELET COUNT, AUTOMATED 290 10^3/uL (150-450); RED BLOOD COUNT 3.69 10^6/uL (4.00-5.40); WHITE BLOOD COUNT 16.1 10^3/uL (4.0-10.0)
[2022-03-14 06:35] LABS: BLOOD UREA NITROGEN 20 MG/DL (7-18); CALCIUM LEVEL 9.2 MG/DL (8.5-10.1); CARBON DIOXIDE LEVEL 27 MEQ/L (21-32); CHLORIDE LEVEL 106 MEQ/L (98-107); CREATININE FOR GFR 0.64 MG/DL (0.55-1.30); GLOMERULAR FILTRATION RATE > 60.0 (>51); GLUCOSE, FASTING 210 MG/DL (70-100); POTASSIUM SERUM 4.1 MEQ/L (3.5-5.1); SODIUM LEVEL 141 MEQ/L (136-145)
[2022-03-14] MEDS: ASPIRIN 81 MG CHEW TABLET PEG SCH (08:01)
[2022-03-14] MEDS: MYCOLOG CREAM 15 GM (NYSTATIN/TRIAMCINOLONE) TOP SCH ×2 (08:02→21:04)
[2022-03-14] MEDS: METOCLOPRAMIDE INJ 10MG/2ML VIAL (J2765 PER 1) IV SCH ×3 (08:02→21:05)
[2022-03-14] MEDS: LEVEMIR (INSULIN DETEMIR) 1 UNITS/0.01ML SC SCH (08:02)
[2022-03-14 14:00] VITALS: BP 135/83
[2022-03-14] MEDS ORDERED: GLUCAGON INJ 1MG VIAL SC PRN (17:25)
[2022-03-14] MEDS ORDERED: DEXTROSE 50% 50 ML SYRINGE IV PRN (17:25)
[2022-03-14] MEDS ORDERED: GLUCOSE 4GM CHEW TABLET PO PRN (17:25)
[2022-03-14] MEDS ORDERED: INSULIN LISPRO (NovoLOG) PER UNIT SC SCH ×2 (17:30→21:00)
[2022-03-14] MEDS: INSULIN LISPRO (NovoLOG) PER UNIT SC SCH ×2 (18:08→23:54)
[2022-03-14] MEDS: SODIUM CHLORIDE 0.9% INJ 10 ML SYR IV PRN (21:05)
[2022-03-14 22:00] VITALS: BP 131/91
[2022-03-15] MEDS: AMPICILLIN SOD/SULBACTAM SOD 1.5 GM in D5W MINI-BAG PLUS 50 ML IV SCH ×3 (05:17→17:33)
[2022-03-15] MEDS: INSULIN LISPRO (NovoLOG) PER UNIT SC SCH ×3 (05:28→17:26)
[2022-03-15 06:00] VITALS: BP 130/84
[2022-03-15 06:52] LABS: HEMATOCRIT 36.4 % (36.0-47.0); MEAN CORPUSCULAR HEMOGLOBIN 31.8 pg (27.0-33.0); MEAN CORPUSCULAR VOLUME 96.6 fl (80.0-96.0); PLATELET COUNT, AUTOMATED 346 10^3/uL (150-450); RED BLOOD COUNT 3.77 10^6/uL (4.00-5.40); WHITE BLOOD COUNT 14.9 10^3/uL (4.0-10.0)
[2022-03-15 07:22] LABS: BLOOD UREA NITROGEN 23 MG/DL (7-18); CALCIUM LEVEL 9.2 MG/DL (8.5-10.1); CARBON DIOXIDE LEVEL 29 MEQ/L (21-32); CHLORIDE LEVEL 106 MEQ/L (98-107); CREATININE FOR GFR 0.63 MG/DL (0.55-1.30); GLOMERULAR FILTRATION RATE > 60.0 (>51); GLUCOSE, FASTING 163 MG/DL (70-100); SODIUM LEVEL 141 MEQ/L (136-145)
[2022-03-15] MEDS: LEVEMIR (INSULIN DETEMIR) 1 UNITS/0.01ML SC SCH (09:39)
[2022-03-15] MEDS: METOCLOPRAMIDE INJ 10MG/2ML VIAL (J2765 PER 1) IV SCH ×3 (09:39→21:44)
[2022-03-15] MEDS: MYCOLOG CREAM 15 GM (NYSTATIN/TRIAMCINOLONE) TOP SCH ×2 (09:40→21:45)
[2022-03-15] MEDS: ASPIRIN 81 MG CHEW TABLET PEG SCH (09:40)
[2022-03-15] MEDS: SODIUM CHLORIDE 0.9% INJ 10 ML SYR IV SCH ×2 (17:32→21:46)
[2022-03-15 22:00] VITALS: BP 130/80
[2022-03-16] MEDS: INSULIN LISPRO (NovoLOG) PER UNIT SC SCH ×4 (00:46→18:00)
[2022-03-16] MEDS: AMPICILLIN SOD/SULBACTAM SOD 1.5 GM in D5W MINI-BAG PLUS 50 ML IV SCH ×2 (00:46→06:22)
[2022-03-16 06:00] VITALS: BP 149/87
[2022-03-16] MEDS: SODIUM CHLORIDE 0.9% INJ 10 ML SYR IV SCH ×2 (06:24→17:59)
[2022-03-16 07:13] LABS: HEMATOCRIT 36.4 % (36.0-47.0); MEAN CORPUSCULAR HEMOGLOBIN 31.9 pg (27.0-33.0); MEAN CORPUSCULAR VOLUME 96.8 fl (80.0-96.0); PLATELET COUNT, AUTOMATED 355 10^3/uL (150-450); RED BLOOD COUNT 3.76 10^6/uL (4.00-5.40)
[2022-03-16 07:36] LABS: BLOOD UREA NITROGEN 25 MG/DL (7-18); CALCIUM LEVEL 9.2 MG/DL (8.5-10.1); CARBON DIOXIDE LEVEL 30 MEQ/L (21-32); CHLORIDE LEVEL 106 MEQ/L (98-107); GLOMERULAR FILTRATION RATE > 60.0 (>51); GLUCOSE, FASTING 201 MG/DL (70-100); POTASSIUM SERUM 3.9 MEQ/L (3.5-5.1); SODIUM LEVEL 140 MEQ/L (136-145)
[2022-03-16] MEDS: ASPIRIN 81 MG CHEW TABLET PEG SCH (09:33)
[2022-03-16] MEDS: METOCLOPRAMIDE INJ 10MG/2ML VIAL (J2765 PER 1) IV SCH ×3 (09:33→22:54)
[2022-03-16] MEDS: LEVEMIR (INSULIN DETEMIR) 1 UNITS/0.01ML SC SCH (09:34)
[2022-03-16] MEDS: MYCOLOG CREAM 15 GM (NYSTATIN/TRIAMCINOLONE) TOP SCH ×2 (09:35→22:55)
[2022-03-16 11:13] LABS: C REACTIVE PROTEIN QUANTITATIV 4.21 MG/DL (0.00-0.30)
[2022-03-16 11:42] LABS: ERYTHROCYTE SEDIMENTATION RATE 70 mm/hr (0-30)
[2022-03-16] MEDS: AUGMENTIN BID 400MG/5ML SUSP 50ML BTL PEG SCH ×2 (13:25→22:54)
[2022-03-16 14:00] VITALS: BP 157/88
[2022-03-16 22:00] VITALS: BP 126/89
[2022-03-17] MEDS: INSULIN LISPRO (NovoLOG) PER UNIT SC SCH ×4 (00:36→18:02)
[2022-03-17 06:00] VITALS: BP 149/89
[2022-03-17] MEDS: SODIUM CHLORIDE 0.9% INJ 10 ML SYR IV SCH ×2 (06:00→18:03)
[2022-03-17 06:23] LABS: HEMATOCRIT 36.9 % (36.0-47.0); HEMOGLOBIN 11.8 g/dl (12.0-15.5); MEAN CORPUSCULAR HEMOGLOBIN 31.1 pg (27.0-33.0); MEAN CORPUSCULAR VOLUME 97.4 fl (80.0-96.0); PLATELET COUNT, AUTOMATED 383 10^3/uL (150-450); RED BLOOD COUNT 3.79 10^6/uL (4.00-5.40); WHITE BLOOD COUNT 11.2 10^3/uL (4.0-10.0)
[2022-03-17 06:48] LABS: BLOOD UREA NITROGEN 22 MG/DL (7-18); CALCIUM LEVEL 9.6 MG/DL (8.5-10.1); CARBON DIOXIDE LEVEL 25 MEQ/L (21-32); CHLORIDE LEVEL 105 MEQ/L (98-107); CREATININE FOR GFR 0.54 MG/DL (0.55-1.30); GLOMERULAR FILTRATION RATE > 60.0 (>51); GLUCOSE, FASTING 148 MG/DL (70-100); POTASSIUM SERUM 4.2 MEQ/L (3.5-5.1); SODIUM LEVEL 140 MEQ/L (136-145)
[2022-03-17] MEDS: ASPIRIN 81 MG CHEW TABLET PEG SCH ×2 (09:00→09:56)
[2022-03-17] MEDS: LEVEMIR (INSULIN DETEMIR) 1 UNITS/0.01ML SC SCH (09:52)
[2022-03-17] MEDS: METOCLOPRAMIDE INJ 10MG/2ML VIAL (J2765 PER 1) IV SCH ×3 (09:52→22:43)
[2022-03-17] MEDS: MYCOLOG CREAM 15 GM (NYSTATIN/TRIAMCINOLONE) TOP SCH ×2 (09:53→22:43)
[2022-03-17] MEDS: AUGMENTIN BID 400MG/5ML SUSP 50ML BTL PEG SCH ×2 (09:53→22:43)
[2022-03-17] MEDS: SODIUM CHLORIDE 0.9% INJ 10 ML SYR IV PRN (22:44)
[2022-03-18] MEDS: INSULIN LISPRO (NovoLOG) PER UNIT SC SCH ×4 (00:20→18:04)
[2022-03-18] MEDS: SODIUM CHLORIDE 0.9% INJ 10 ML SYR IV SCH ×2 (05:29→18:04)
[2022-03-18 06:00] VITALS: BP 140/80
[2022-03-18 07:51] LABS: HEMATOCRIT 37.8 % (36.0-47.0); HEMOGLOBIN 12.3 g/dl (12.0-15.5); MEAN CORPUSCULAR HEMOGLOBIN 31.1 pg (27.0-33.0); MEAN CORPUSCULAR HGB CONC 32.5 g/dl (32.0-36.5); MEAN CORPUSCULAR VOLUME 95.5 fl (80.0-96.0); PLATELET COUNT, AUTOMATED 426 10^3/uL (150-450); RED BLOOD COUNT 3.96 10^6/uL (4.00-5.40); WHITE BLOOD COUNT 11.4 10^3/uL (4.0-10.0)
[2022-03-18 08:23] LABS: BLOOD UREA NITROGEN 24 MG/DL (7-18); CALCIUM LEVEL 9.6 MG/DL (8.5-10.1); CARBON DIOXIDE LEVEL 27 MEQ/L (21-32); CHLORIDE LEVEL 105 MEQ/L (98-107); GLOMERULAR FILTRATION RATE > 60.0 (>51); GLUCOSE, FASTING 186 MG/DL (70-100); POTASSIUM SERUM 4.2 MEQ/L (3.5-5.1); SODIUM LEVEL 140 MEQ/L (136-145)
[2022-03-18] MEDS: LEVEMIR (INSULIN DETEMIR) 1 UNITS/0.01ML SC SCH (10:05)
[2022-03-18] MEDS: AUGMENTIN BID 400MG/5ML SUSP 50ML BTL PEG SCH ×2 (10:06→20:42)
[2022-03-18] MEDS: MYCOLOG CREAM 15 GM (NYSTATIN/TRIAMCINOLONE) TOP SCH ×2 (10:06→20:44)
[2022-03-18] MEDS: ASPIRIN 81 MG CHEW TABLET PEG SCH (10:06)
[2022-03-18] MEDS: METOCLOPRAMIDE 5 MG TAB PO SCH ×3 (10:10→20:42)
[2022-03-18] MEDS: METOCLOPRAMIDE 5 MG TAB PEG SCH (21:00)
[2022-03-19] MEDS: INSULIN LISPRO (NovoLOG) PER UNIT SC SCH ×4 (00:46→17:23)
[2022-03-19] MEDS: SODIUM CHLORIDE 0.9% INJ 10 ML SYR IV SCH ×2 (05:40→17:23)
[2022-03-19 06:00] VITALS: BP 149/94
[2022-03-19 06:32] LABS: HEMOGLOBIN 12.3 g/dl (12.0-15.5); MEAN CORPUSCULAR HEMOGLOBIN 31.9 pg (27.0-33.0); MEAN CORPUSCULAR HGB CONC 33.2 g/dl (32.0-36.5); MEAN CORPUSCULAR VOLUME 95.9 fl (80.0-96.0); PLATELET COUNT, AUTOMATED 437 10^3/uL (150-450); RED BLOOD COUNT 3.86 10^6/uL (4.00-5.40); WHITE BLOOD COUNT 12.8 10^3/uL (4.0-10.0)
[2022-03-19 06:54] LABS: BLOOD UREA NITROGEN 25 MG/DL (7-18); CALCIUM LEVEL 9.6 MG/DL (8.5-10.1); CARBON DIOXIDE LEVEL 27 MEQ/L (21-32); CHLORIDE LEVEL 107 MEQ/L (98-107); CREATININE FOR GFR 0.61 MG/DL (0.55-1.30); GLOMERULAR FILTRATION RATE > 60.0 (>51); GLUCOSE, FASTING 226 MG/DL (70-100); POTASSIUM SERUM 4.3 MEQ/L (3.5-5.1); SODIUM LEVEL 142 MEQ/L (136-145)
[2022-03-19] MEDS: MYCOLOG CREAM 15 GM (NYSTATIN/TRIAMCINOLONE) TOP SCH ×2 (09:48→22:56)
[2022-03-19] MEDS: LEVEMIR (INSULIN DETEMIR) 1 UNITS/0.01ML SC SCH (09:48)
[2022-03-19] MEDS: METOCLOPRAMIDE 5 MG TAB PEG SCH (09:48)
[2022-03-19] MEDS: AUGMENTIN BID 400MG/5ML SUSP 50ML BTL PEG SCH (09:48)
[2022-03-19] MEDS: ASPIRIN 81 MG CHEW TABLET PEG SCH (09:49)
[2022-03-19] MEDS: AMPICILLIN SOD/SULBACTAM SOD 3 GM in D5W MINI-BAG PLUS 100 ML IV SCH ×2 (17:22→22:55)
[2022-03-19] MEDS ORDERED: AMINO AC/ELECTROLYTE/DEX/CALC 2,566 ML IV SCH (18:00)
[2022-03-19] MEDS ORDERED: ONDANSETRON 4MG/2ML VIAL IV PRN (21:30)
[2022-03-19] MEDS ORDERED: METOCLOPRAMIDE INJ 10MG/2ML VIAL (J2765 PER 1) IV ONE (21:45)
[2022-03-19] MEDS ORDERED: diphenhydrAMINE 50MG/ML VIAL (J1200) IV ONE (22:45)
[2022-03-20] MEDS: INSULIN LISPRO (NovoLOG) PER UNIT SC SCH ×4 (00:30→17:53)
[2022-03-20] MEDS: AMPICILLIN SOD/SULBACTAM SOD 3 GM in D5W MINI-BAG PLUS 100 ML IV SCH ×4 (04:41→23:20)
[2022-03-20] MEDS: SODIUM CHLORIDE 0.9% INJ 10 ML SYR IV SCH ×2 (05:37→15:50)
[2022-03-20 06:29] LABS: HEMOGLOBIN 12.7 g/dl (12.0-15.5); MEAN CORPUSCULAR HEMOGLOBIN 31.9 pg (27.0-33.0); MEAN CORPUSCULAR HGB CONC 33.4 g/dl (32.0-36.5); MEAN CORPUSCULAR VOLUME 95.5 fl (80.0-96.0); PLATELET COUNT, AUTOMATED 463 10^3/uL (150-450); RED BLOOD COUNT 3.98 10^6/uL (4.00-5.40); WHITE BLOOD COUNT 11.7 10^3/uL (4.0-10.0)
[2022-03-20 07:00] LABS: BLOOD UREA NITROGEN 19 MG/DL (7-18); CALCIUM LEVEL 9.9 MG/DL (8.5-10.1); CARBON DIOXIDE LEVEL 31 MEQ/L (21-32); CHLORIDE LEVEL 103 MEQ/L (98-107); CREATININE FOR GFR 0.67 MG/DL (0.55-1.30); GLOMERULAR FILTRATION RATE > 60.0 (>51); GLUCOSE, FASTING 257 MG/DL (70-100); POTASSIUM SERUM 3.8 MEQ/L (3.5-5.1); SODIUM LEVEL 141 MEQ/L (136-145)
[2022-03-20] MEDS ORDERED: ASPIRIN 300 MG SUPP PR SCH (09:00)
[2022-03-20] MEDS: LEVEMIR (INSULIN DETEMIR) 1 UNITS/0.01ML SC SCH (09:29)
[2022-03-20] MEDS: MYCOLOG CREAM 15 GM (NYSTATIN/TRIAMCINOLONE) TOP SCH ×2 (09:30→23:20)
[2022-03-20] MEDS: SODIUM CHLORIDE 0.9% INJ 10 ML SYR IV PRN (10:18)
[2022-03-20] MEDS ORDERED: GASTROGRAFIN SOLUTION 30ML (Q9963) PEG ONE (12:45)
[2022-03-20] MEDS ORDERED: AMINO AC/ELECTROLYTE/DEX/CALC 2,566 ML IV SCH (18:00)
[2022-03-21] MEDS: INSULIN LISPRO (NovoLOG) PER UNIT SC SCH ×5 (00:39→21:00)
[2022-03-21] MEDS: AMPICILLIN SOD/SULBACTAM SOD 3 GM in D5W MINI-BAG PLUS 100 ML IV SCH ×2 (04:12→09:53)
[2022-03-21] MEDS: SODIUM CHLORIDE 0.9% INJ 10 ML SYR IV SCH ×2 (05:00→18:11)
[2022-03-21 06:00] VITALS: BP 152/97
[2022-03-21 07:18] LABS: HEMATOCRIT 35.8 % (36.0-47.0); HEMOGLOBIN 11.9 g/dl (12.0-15.5); MEAN CORPUSCULAR HEMOGLOBIN 32.2 pg (27.0-33.0); MEAN CORPUSCULAR HGB CONC 33.2 g/dl (32.0-36.5); PLATELET COUNT, AUTOMATED 425 10^3/uL (150-450); RED BLOOD COUNT 3.69 10^6/uL (4.00-5.40); WHITE BLOOD COUNT 11.4 10^3/uL (4.0-10.0)
[2022-03-21 07:51] LABS: BLOOD UREA NITROGEN 22 MG/DL (7-18); CARBON DIOXIDE LEVEL 31 MEQ/L (21-32); CHLORIDE LEVEL 102 MEQ/L (98-107); CREATININE FOR GFR 0.62 MG/DL (0.55-1.30); GLOMERULAR FILTRATION RATE > 60.0 (>51); GLUCOSE, FASTING 174 MG/DL (70-100); SODIUM LEVEL 138 MEQ/L (136-145)
[2022-03-21] MEDS: MYCOLOG CREAM 15 GM (NYSTATIN/TRIAMCINOLONE) TOP SCH ×2 (09:00→21:00)
[2022-03-21] MEDS: LEVEMIR (INSULIN DETEMIR) 1 UNITS/0.01ML SC SCH (09:54)
[2022-03-21] MEDS: ASPIRIN 81 MG CHEW TABLET PEG SCH (14:10)
[2022-03-21] MEDS ORDERED: GLUCAGON INJ 1MG VIAL SC PRN (17:50)
[2022-03-21] MEDS ORDERED: GLUCOSE 4GM CHEW TABLET PO PRN (17:50)
[2022-03-21] MEDS: AUGMENTIN 875 MG TAB PEG SCH (21:17)
[2022-03-22 06:00] VITALS: BP 148/94
[2022-03-22] MEDS: SODIUM CHLORIDE 0.9% INJ 10 ML SYR IV SCH ×2 (06:15→17:51)
[2022-03-22 06:28] LABS: HEMATOCRIT 35.5 % (36.0-47.0); HEMOGLOBIN 11.7 g/dl (12.0-15.5); MEAN CORPUSCULAR HEMOGLOBIN 31.8 pg (27.0-33.0); MEAN CORPUSCULAR VOLUME 96.5 fl (80.0-96.0); PLATELET COUNT, AUTOMATED 410 10^3/uL (150-450); RED BLOOD COUNT 3.68 10^6/uL (4.00-5.40); WHITE BLOOD COUNT 9.9 10^3/uL (4.0-10.0)
[2022-03-22 06:55] LABS: BLOOD UREA NITROGEN 20 MG/DL (7-18); CALCIUM LEVEL 8.8 MG/DL (8.5-10.1); CARBON DIOXIDE LEVEL 30 MEQ/L (21-32); CHLORIDE LEVEL 101 MEQ/L (98-107); CREATININE FOR GFR 0.56 MG/DL (0.55-1.30); GLOMERULAR FILTRATION RATE > 60.0 (>51); GLUCOSE, FASTING 182 MG/DL (70-100); SODIUM LEVEL 137 MEQ/L (136-145)
[2022-03-22] MEDS ORDERED: FLEET ENEMA PR ONE (08:20)
[2022-03-22] MEDS ORDERED: FLEET ENEMA PR PRN (08:20)
[2022-03-22] MEDS: AUGMENTIN 875 MG TAB PEG SCH ×2 (08:47→20:40)
[2022-03-22] MEDS: ASPIRIN 81 MG CHEW TABLET PEG SCH (08:47)
[2022-03-22] MEDS: LEVEMIR (INSULIN DETEMIR) 1 UNITS/0.01ML SC SCH (08:48)
[2022-03-22] MEDS: INSULIN LISPRO (NovoLOG) PER UNIT SC SCH ×4 (08:48→20:55)
[2022-03-22] MEDS: MYCOLOG CREAM 15 GM (NYSTATIN/TRIAMCINOLONE) TOP SCH ×2 (09:00→20:40)
[2022-03-23] MEDS: SODIUM CHLORIDE 0.9% INJ 10 ML SYR IV SCH ×2 (05:16→18:49)
[2022-03-23 06:00] VITALS: BP 155/88
[2022-03-23 07:23] LABS: HEMATOCRIT 36.4 % (36.0-47.0); HEMOGLOBIN 11.9 g/dl (12.0-15.5); MEAN CORPUSCULAR HEMOGLOBIN 31.5 pg (27.0-33.0); MEAN CORPUSCULAR HGB CONC 32.7 g/dl (32.0-36.5); MEAN CORPUSCULAR VOLUME 96.3 fl (80.0-96.0); PLATELET COUNT, AUTOMATED 420 10^3/uL (150-450); RED BLOOD COUNT 3.78 10^6/uL (4.00-5.40)
[2022-03-23 07:49] LABS: BLOOD UREA NITROGEN 15 MG/DL (7-18); CARBON DIOXIDE LEVEL 32 MEQ/L (21-32); CHLORIDE LEVEL 103 MEQ/L (98-107); CREATININE FOR GFR 0.57 MG/DL (0.55-1.30); GLOMERULAR FILTRATION RATE > 60.0 (>51); GLUCOSE, FASTING 173 MG/DL (70-100); POTASSIUM SERUM 4.1 MEQ/L (3.5-5.1); SODIUM LEVEL 140 MEQ/L (136-145)
[2022-03-23] MEDS: ASPIRIN 81 MG CHEW TABLET PEG SCH (09:08)
[2022-03-23] MEDS: INSULIN LISPRO (NovoLOG) PER UNIT SC SCH ×4 (09:09→21:00)
[2022-03-23] MEDS: LEVEMIR (INSULIN DETEMIR) 1 UNITS/0.01ML SC SCH (09:09)
[2022-03-23] MEDS: AUGMENTIN 875 MG TAB PEG SCH ×2 (09:09→21:31)
[2022-03-23] MEDS: MYCOLOG CREAM 15 GM (NYSTATIN/TRIAMCINOLONE) TOP SCH ×2 (09:50→21:31)
[2022-03-23] MEDS: SILVER SULFADIAZINE 1% CR 50 GM JAR TOP SCH (21:30)
[2022-03-24] MEDS: SODIUM CHLORIDE 0.9% INJ 10 ML SYR IV SCH (05:42)
[2022-03-24 06:01] LABS: HEMATOCRIT 34.5 % (36.0-47.0); HEMOGLOBIN 11.6 g/dl (12.0-15.5); MEAN CORPUSCULAR HEMOGLOBIN 32.3 pg (27.0-33.0); MEAN CORPUSCULAR HGB CONC 33.6 g/dl (32.0-36.5); MEAN CORPUSCULAR VOLUME 96.1 fl (80.0-96.0); PLATELET COUNT, AUTOMATED 423 10^3/uL (150-450); RED BLOOD COUNT 3.59 10^6/uL (4.00-5.40); WHITE BLOOD COUNT 9.7 10^3/uL (4.0-10.0)
[2022-03-24 06:30] LABS: BLOOD UREA NITROGEN 17 MG/DL (7-18); CARBON DIOXIDE LEVEL 29 MEQ/L (21-32); CHLORIDE LEVEL 103 MEQ/L (98-107); CREATININE FOR GFR 0.58 MG/DL (0.55-1.30); GLOMERULAR FILTRATION RATE > 60.0 (>51); GLUCOSE, FASTING 175 MG/DL (70-100); POTASSIUM SERUM 3.9 MEQ/L (3.5-5.1); SODIUM LEVEL 138 MEQ/L (136-145)
[2022-03-24] MEDS ORDERED: SILV50CR TOP ×2 (09:56→11:27)
[2022-03-24] MEDS ORDERED: MYCO15CR TOP ×2 (09:56→11:27)
[2022-03-24] MEDS ORDERED: AMOX875T2 PEG (09:57)
[2022-03-24] MEDS: ASPIRIN 81 MG CHEW TABLET PEG SCH (10:11)
[2022-03-24] MEDS: LEVEMIR (INSULIN DETEMIR) 1 UNITS/0.01ML SC SCH (10:11)
[2022-03-24] MEDS: AUGMENTIN 875 MG TAB PEG SCH (10:11)
[2022-03-24] MEDS: SILVER SULFADIAZINE 1% CR 50 GM JAR TOP SCH (10:12)
[2022-03-24] MEDS: INSULIN LISPRO (NovoLOG) PER UNIT SC SCH (10:12)
[2022-03-24] MEDS: MYCOLOG CREAM 15 GM (NYSTATIN/TRIAMCINOLONE) TOP SCH (10:13)
[2022-03-24] MEDS ORDERED: AMOX875T2 PO (11:27)
== END 2022-03-24 12:05 | DRG 951 ==
LOC: EDBD 12:44 → M ED 12:44 → M ED INP 18:17 → ENRESERV 22:32 → M PCU 23:05 → M MSPAV 03-07 15:40
PROVIDERS: ADMIT Internal Medicine; ATTEND General Practice
PROC: 02HV33Z Insertion of Infusion Device into Superior Vena Cava, Percutaneous Approach (ICD-10-PCS; 2022-03-04)
PROC: 0DH68UZ Insertion of Feeding Device into Stomach, Via Natural or Artificial Opening Endoscopic (ICD-10-PCS; principal; 2022-03-09 13:15)
PROC: 0DWD3UZ Revision of Feeding Device in Lower Intestinal Tract, Percutaneous Approach (ICD-10-PCS; 2022-03-21)
DX: I67.5 Moyamoya disease (principal); G93.41 Metabolic encephalopathy; L89.152 Pressure ulcer of sacral region, stage 2; E87.0 Hyperosmolality and hypernatremia; E87.5 Hyperkalemia; R13.10 Dysphagia, unspecified; L03.311 Cellulitis of abdominal wall; E89.0 Postprocedural hypothyroidism; E11.9 Type 2 diabetes mellitus without complications; Z74.09 Other reduced mobility; Z74.1 Need for assistance with personal care; F17.200 Nicotine dependence, unspecified, uncomplicated; E78.5 Hyperlipidemia, unspecified; R62.7 Adult failure to thrive; I10 Essential (primary) hypertension; I69.322 Dysarthria following cerebral infarction; I69.391 Dysphagia following cerebral infarction; Z20.822 Contact with and (suspected) exposure to COVID-19; K59.00 Constipation, unspecified; Z79.82 Long term (current) use of aspirin; Z90.49 Acquired absence of other specified parts of digestive tract; Z79.4 Long term (current) use of insulin; Z79.899 Other long term (current) drug therapy

== ENCOUNTER → 2022-03-29 | Outpatient (REF) | payer OTHER ==
[~2022-03-29] MED LIST: AMLO1TAB25 PO; AMOX875T2 PEG; AMOX875T2 PO; ASPI81TA26 PO; ATOR80TA59 PO; GABA-283 PO; HYDR-3363 PO; INSU100I34 SQ; JARD1TAB PO; LISI20TA33 PO; MELA5TAB7 PO; MYCO15CR TOP; NICO1DIS12 TD; SILV50CR TOP
[2022-03-29 10:01] LABS: HEMATOCRIT 40.3 % (36.0-47.0); HEMOGLOBIN 12.8 g/dl (12.0-15.5); MEAN CORPUSCULAR HEMOGLOBIN 31.8 pg (27.0-33.0); MEAN CORPUSCULAR HGB CONC 31.8 g/dl (32.0-36.5); PLATELET COUNT, AUTOMATED 499 10^3/uL (150-450); RED BLOOD COUNT 4.03 10^6/uL (4.00-5.40)
[2022-03-29 11:37] LABS: ALT/SGPT 23 U/L (12-78); BILIRUBIN,TOTAL 0.6 MG/DL (0.2-1.0); BLOOD UREA NITROGEN 16 MG/DL (7-18); CALCIUM LEVEL 9.1 MG/DL (8.5-10.1); CARBON DIOXIDE LEVEL 31 MEQ/L (21-32); CHLORIDE LEVEL 103 MEQ/L (98-107); CREATININE FOR GFR 0.71 MG/DL (0.55-1.30); GLOMERULAR FILTRATION RATE > 60.0 (>51); GLUCOSE, FASTING 185 MG/DL (70-100); SODIUM LEVEL 138 MEQ/L (136-145); TOTAL PROTEIN 7.1 GM/DL (6.4-8.2)
== END ==
LOC: SKLAB5 07:00
PROVIDERS: ATTEND Internal Medicine
DX: I63.9 Cerebral infarction, unspecified (principal)

== ENCOUNTER → 2022-04-04 | Outpatient (REF) ==
[2022-04-04 09:25] LABS: HEMATOCRIT 38.1 % (36.0-47.0); HEMOGLOBIN 12.4 g/dl (12.0-15.5); MEAN CORPUSCULAR HEMOGLOBIN 32.8 pg (27.0-33.0); MEAN CORPUSCULAR HGB CONC 32.5 g/dl (32.0-36.5); MEAN CORPUSCULAR VOLUME 100.8 fl (80.0-96.0); PLATELET COUNT, AUTOMATED 371 10^3/uL (150-450); RED BLOOD COUNT 3.78 10^6/uL (4.00-5.40); WHITE BLOOD COUNT 9.7 10^3/uL (4.0-10.0)
[2022-04-04 09:53] LABS: BLOOD UREA NITROGEN 22 MG/DL (7-18); CALCIUM LEVEL 9.9 MG/DL (8.5-10.1); CARBON DIOXIDE LEVEL 29 MEQ/L (21-32); CHLORIDE LEVEL 108 MEQ/L (98-107); GLOMERULAR FILTRATION RATE > 60.0 (>51); GLUCOSE, FASTING 119 MG/DL (70-100); POTASSIUM SERUM 3.8 MEQ/L (3.5-5.1); SODIUM LEVEL 142 MEQ/L (136-145)
== END ==
LOC: SKLAB5 07:13
PROVIDERS: ATTEND Internal Medicine
DX: R41.89 Other symptoms and signs involving cognitive functions and awareness (principal)

== ENCOUNTER → 2022-04-05 | Outpatient (REF) | payer OTHER ==
[2022-04-05 08:07] LABS: HEMATOCRIT 38.5 % (36.0-47.0); HEMOGLOBIN 12.3 g/dl (12.0-15.5); MEAN CORPUSCULAR HEMOGLOBIN 31.7 pg (27.0-33.0); MEAN CORPUSCULAR HGB CONC 31.9 g/dl (32.0-36.5); MEAN CORPUSCULAR VOLUME 99.2 fl (80.0-96.0); PLATELET COUNT, AUTOMATED 330 10^3/uL (150-450); RED BLOOD COUNT 3.88 10^6/uL (4.00-5.40); WHITE BLOOD COUNT 8.3 10^3/uL (4.0-10.0)
[2022-04-05 08:46] LABS: ALT/SGPT 21 U/L (12-78); BILIRUBIN,TOTAL 0.7 MG/DL (0.2-1.0); BLOOD UREA NITROGEN 22 MG/DL (7-18); CALCIUM LEVEL 9.7 MG/DL (8.5-10.1); CARBON DIOXIDE LEVEL 27 MEQ/L (21-32); CHLORIDE LEVEL 112 MEQ/L (98-107); CREATININE FOR GFR 0.61 MG/DL (0.55-1.30); GLOMERULAR FILTRATION RATE > 60.0 (>51); GLUCOSE, FASTING 106 MG/DL (70-100); POTASSIUM SERUM 4.1 MEQ/L (3.5-5.1); SODIUM LEVEL 145 MEQ/L (136-145); TOTAL PROTEIN 6.5 GM/DL (6.4-8.2)
== END ==
LOC: SKLAB5 09:00
PROVIDERS: ATTEND Internal Medicine
DX: I63.9 Cerebral infarction, unspecified (principal)

== ENCOUNTER → 2022-04-12 | Outpatient (REF) | payer OTHER ==
[2022-04-12 07:19] LABS: HEMATOCRIT 40.1 % (36.0-47.0); MEAN CORPUSCULAR HEMOGLOBIN 31.9 pg (27.0-33.0); MEAN CORPUSCULAR HGB CONC 32.4 g/dl (32.0-36.5); MEAN CORPUSCULAR VOLUME 98.3 fl (80.0-96.0); PLATELET COUNT, AUTOMATED 364 10^3/uL (150-450); RED BLOOD COUNT 4.08 10^6/uL (4.00-5.40)
[2022-04-12 07:43] LABS: ALBUMIN 3.1 GM/DL (3.2-5.2); ALT/SGPT 23 U/L (12-78); BILIRUBIN,TOTAL 0.6 MG/DL (0.2-1.0); BLOOD UREA NITROGEN 19 MG/DL (7-18); CALCIUM LEVEL 9.4 MG/DL (8.5-10.1); CARBON DIOXIDE LEVEL 31 MEQ/L (21-32); CHLORIDE LEVEL 108 MEQ/L (98-107); CREATININE FOR GFR 0.59 MG/DL (0.55-1.30); GLOMERULAR FILTRATION RATE > 60.0 (>51); GLUCOSE, FASTING 97 MG/DL (70-100); POTASSIUM SERUM 4.3 MEQ/L (3.5-5.1); SODIUM LEVEL 143 MEQ/L (136-145); TOTAL PROTEIN 6.7 GM/DL (6.4-8.2)
== END ==
LOC: SKLAB5 13:25
PROVIDERS: ATTEND Internal Medicine
DX: I63.9 Cerebral infarction, unspecified (principal)

== ENCOUNTER → 2022-04-25 | Outpatient (REF) | payer OTHER ==
[2022-04-25 10:01] LABS: BASO # 0.1 10^3/uL (0.0-0.2); BASO % 0.9 % (0.0-1.0); EOS # 0.3 10^3/uL (0.0-0.5); EOS % 5.2 % (0.0-3.0); HEMATOCRIT 46.3 % (36.0-47.0); HEMOGLOBIN 14.9 g/dl (12.0-15.5); LYMPH # 2.1 10^3/uL (1.5-5.0); LYMPH % 32.3 % (24.0-44.0); MEAN CORPUSCULAR HEMOGLOBIN 31.9 pg (27.0-33.0); MEAN CORPUSCULAR HGB CONC 32.2 g/dl (32.0-36.5); MEAN CORPUSCULAR VOLUME 99.1 fl (80.0-96.0); MONO # 0.5 10^3/uL (0.0-0.8); MONO % 7.4 % (2.0-8.0); NEUTROPHILS # 3.4 10^3/uL (1.5-8.5); NEUTROPHILS % 53.9 % (36.0-66.0); PLATELET COUNT, AUTOMATED 298 10^3/uL (150-450); RED BLOOD COUNT 4.67 10^6/uL (4.00-5.40); WHITE BLOOD COUNT 6.3 10^3/uL (4.0-10.0)
[2022-04-25 10:14] LABS: INR 0.9; PROTHROMBIN TIME 12.6 SECONDS (12.7-14.5)
[2022-04-25 10:15] LABS: PARTIAL THROMBOPLASTIN TIME 30.2 SECONDS (25.9-37.0)
[2022-04-25 10:21] LABS: BLOOD UREA NITROGEN 17 MG/DL (7-18); CALCIUM LEVEL 10.4 MG/DL (8.5-10.1); CARBON DIOXIDE LEVEL 29 MEQ/L (21-32); CHLORIDE LEVEL 107 MEQ/L (98-107); CREATININE FOR GFR 0.61 MG/DL (0.55-1.30); GLOMERULAR FILTRATION RATE > 60.0 (>51); GLUCOSE, FASTING 119 MG/DL (70-100); POTASSIUM SERUM 4.3 MEQ/L (3.5-5.1); SODIUM LEVEL 141 MEQ/L (136-145)
== END ==
LOC: SKLAB5 09:19
PROVIDERS: ATTEND Internal Medicine
DX: I67.5 Moyamoya disease (principal)

== ENCOUNTER → 2022-05-04 | Outpatient (REF) ==
[2022-05-04 13:27] LABS: HEMATOCRIT 41.6 % (36.0-47.0); HEMOGLOBIN 13.3 g/dl (12.0-15.5); MEAN CORPUSCULAR HEMOGLOBIN 31.7 pg (27.0-33.0); PLATELET COUNT, AUTOMATED 404 10^3/uL (150-450); WHITE BLOOD COUNT 7.9 10^3/uL (4.0-10.0)
[2022-05-04 14:58] LABS: ALBUMIN 3.5 GM/DL (3.2-5.2); ALT/SGPT 24 U/L (12-78); BILIRUBIN,TOTAL 0.7 MG/DL (0.2-1.0); BLOOD UREA NITROGEN 20 MG/DL (7-18); CALCIUM LEVEL 9.6 MG/DL (8.5-10.1); CARBON DIOXIDE LEVEL 24 MEQ/L (21-32); CHLORIDE LEVEL 105 MEQ/L (98-107); CREATININE FOR GFR 0.58 MG/DL (0.55-1.30); GLOMERULAR FILTRATION RATE > 60.0 (>51); GLUCOSE, FASTING 166 MG/DL (70-100); POTASSIUM SERUM 4.5 MEQ/L (3.5-5.1); SODIUM LEVEL 138 MEQ/L (136-145); TOTAL PROTEIN 7.4 GM/DL (6.4-8.2)
== END ==
PROVIDERS: ATTEND Internal Medicine
DX: I10 Essential (primary) hypertension (principal); Z86.73 Personal history of transient ischemic attack (TIA), and cerebral infarction without residual deficits

== ENCOUNTER → 2022-05-10 | Outpatient (REF) ==
[2022-05-10 13:17] LABS: BASO # 0.1 10^3/uL (0.0-0.2); BASO % 0.5 % (0.0-1.0); EOS # 0.2 10^3/uL (0.0-0.5); EOS % 1.5 % (0.0-3.0); HEMATOCRIT 45.6 % (36.0-47.0); HEMOGLOBIN 14.3 g/dl (12.0-15.5); LYMPH # 2.4 10^3/uL (1.5-5.0); LYMPH % 17.1 % (24.0-44.0); MEAN CORPUSCULAR HEMOGLOBIN 31.6 pg (27.0-33.0); MEAN CORPUSCULAR HGB CONC 31.4 g/dl (32.0-36.5); MEAN CORPUSCULAR VOLUME 100.7 fl (80.0-96.0); MONO # 0.7 10^3/uL (0.0-0.8); MONO % 5.1 % (2.0-8.0); NEUTROPHILS # 10.6 10^3/uL (1.5-8.5); NEUTROPHILS % 75.4 % (36.0-66.0); PLATELET COUNT, AUTOMATED 483 10^3/uL (150-450); RED BLOOD COUNT 4.53 10^6/uL (4.00-5.40); WHITE BLOOD COUNT 14.1 10^3/uL (4.0-10.0)
[2022-05-10 14:32] LABS: BLOOD UREA NITROGEN 56 MG/DL (7-18); CARBON DIOXIDE LEVEL 28 MEQ/L (21-32); CHLORIDE LEVEL 113 MEQ/L (98-107); CREATININE FOR GFR 0.83 MG/DL (0.55-1.30); GLOMERULAR FILTRATION RATE > 60.0 (>51); GLUCOSE, FASTING 206 MG/DL (70-100); MAGNESIUM LEVEL 2.9 MG/DL (1.8-2.4); POTASSIUM SERUM 4.2 MEQ/L (3.5-5.1); SODIUM LEVEL 146 MEQ/L (136-145)
== END ==
PROVIDERS: ATTEND Physician Assistant
DX: R19.7 Diarrhea, unspecified (principal)

== ENCOUNTER 2022-05-11 11:23 | Emergency (ER) | payer OTHER ==
[2022-05-11] MEDS ORDERED: NS 1,000 ML IV ONE (13:05)
[2022-05-11] MEDS ORDERED: ISOVUE-370 76% 100ML VIAL As Ordered ONE (14:35)
[2022-05-11 14:53] LABS: BILIRUBIN,DIRECT 0.1 MG/DL (0.0-0.2); BILIRUBIN,TOTAL 0.5 MG/DL (0.2-1.0); TOTAL PROTEIN 8.3 GM/DL (6.4-8.2)
[2022-05-11 17:45] VITALS: BP 154/81
== END 2022-05-11 18:30 | disposition home or self-care (01) ==
LOC: EDBD 11:23 → M ED 11:23
DX: E86.0 Dehydration (principal); I74.09 Other arterial embolism and thrombosis of abdominal aorta; E11.9 Type 2 diabetes mellitus without complications; I10 Essential (primary) hypertension; E78.5 Hyperlipidemia, unspecified; Z86.73 Personal history of transient ischemic attack (TIA), and cerebral infarction without residual deficits; Z79.899 Other long term (current) drug therapy; Z79.82 Long term (current) use of aspirin; Z79.4 Long term (current) use of insulin; Z79.84 Long term (current) use of oral hypoglycemic drugs
CPT/HCPCS: 36415; 74177; 80047; 80076; 81001; 83690; 87088; 96360; 96361; 99284; Q9967

== ENCOUNTER → 2022-05-11 | Outpatient (REF) ==
[2022-05-11 12:35] LABS: HEMATOCRIT 45.8 % (36.0-47.0); HEMOGLOBIN 14.6 g/dl (12.0-15.5); MEAN CORPUSCULAR HEMOGLOBIN 31.5 pg (27.0-33.0); MEAN CORPUSCULAR HGB CONC 31.9 g/dl (32.0-36.5); MEAN CORPUSCULAR VOLUME 98.9 fl (80.0-96.0); PLATELET COUNT, AUTOMATED 442 10^3/uL (150-450); RED BLOOD COUNT 4.63 10^6/uL (4.00-5.40); WHITE BLOOD COUNT 13.1 10^3/uL (4.0-10.0)
[2022-05-11 14:27] LABS: BLOOD UREA NITROGEN 49 MG/DL (7-18); CALCIUM LEVEL 9.9 MG/DL (8.5-10.1); CARBON DIOXIDE LEVEL 28 MEQ/L (21-32); CHLORIDE LEVEL 109 MEQ/L (98-107); CREATININE FOR GFR 0.82 MG/DL (0.55-1.30); GLOMERULAR FILTRATION RATE > 60.0 (>51); GLUCOSE, FASTING 200 MG/DL (70-100); MAGNESIUM LEVEL 2.7 MG/DL (1.8-2.4); POTASSIUM SERUM 4.4 MEQ/L (3.5-5.1); SODIUM LEVEL 145 MEQ/L (136-145)
== END ==
PROVIDERS: ATTEND Internal Medicine
DX: E86.0 Dehydration (principal); D72.829 Elevated white blood cell count, unspecified

== ENCOUNTER → 2022-05-12 | Outpatient (REF) | payer OTHER | PROVIDERS: ATTEND Internal Medicine | DX: T17.900A Unspecified foreign body in respiratory tract, part unspecified causing asphyxiation, initial encounter (principal) ==

== ENCOUNTER → 2022-05-12 | Outpatient (REF) | PROVIDERS: ATTEND Internal Medicine | DX: R19.7 Diarrhea, unspecified (principal) ==

== ENCOUNTER → 2022-05-16 | Outpatient (CLI) | payer OTHER | LOC: M RAD 11:16 | PROVIDERS: ATTEND Internal Medicine | DX: R07.82 Intercostal pain (principal); W19.XXXA Unspecified fall, initial encounter ==

== ENCOUNTER 2022-05-18 08:20 | Emergency (ER) | payer OTHER ==
[~2022-05-18] VITALS: Ht 162.6 cm; Wt 53.5 kg
[2022-05-18] MEDS ORDERED: ONDANSETRON 4MG ORAL DISINTEGRATING TAB SL STA (09:52)
[2022-05-18] MEDS ORDERED: PROT1TAB2 PO (09:59)
[2022-05-18] MEDS ORDERED: SUCR1SS PO (09:59)
[2022-05-18 10:12] VITALS: BP 137/76
== END 2022-05-18 11:35 | disposition home or self-care (01) ==
LOC: EDBD 08:20 → M ED 08:20
DX: K94.23 Gastrostomy malfunction (principal); I67.5 Moyamoya disease; I69.359 Hemiplegia and hemiparesis following cerebral infarction affecting unspecified side; Z79.899 Other long term (current) drug therapy; Z79.82 Long term (current) use of aspirin; Z79.84 Long term (current) use of oral hypoglycemic drugs; Z79.4 Long term (current) use of insulin; Z87.891 Personal history of nicotine dependence

== ENCOUNTER 2022-05-21 12:34 | Emergency (ER) | payer OTHER ==
[~2022-05-21 12:34] MED LIST changes: +PROT1TAB2 PO; +SUCR1SS PO
[2022-05-21] MEDS ORDERED: GASTROGRAFIN SOLUTION 30ML (Q9963) PO STA (13:16)
[2022-05-21 15:21] VITALS: BP 128/72
== END 2022-05-21 15:47 | disposition home or self-care (01) ==
LOC: EDBD 12:34 → M ED 12:34
DX: K94.23 Gastrostomy malfunction (principal); E11.9 Type 2 diabetes mellitus without complications; Z86.73 Personal history of transient ischemic attack (TIA), and cerebral infarction without residual deficits; Z79.899 Other long term (current) drug therapy; Z79.82 Long term (current) use of aspirin; Z79.4 Long term (current) use of insulin
CPT/HCPCS: 74018; 99283; Q9963

== ENCOUNTER → 2022-05-25 | Outpatient (CLI) | payer OTHER ==
[~2022-05-25] MED LIST changes: +BARIUM SULFATE 700 MG TABLET (E-Z-DISK) As Ordered ONE; +E-Z-PAQUE 96% w/w SUSP 176GM BTL As Ordered ONE; +VARIBAR NECTAR 40% w/v 240ML SUSP BTL As Ordered ONE; +VARIBAR PUDDING 40% w/v 230ML TUBE As Ordered ONE
== END ==
LOC: M RAD 12:18
PROVIDERS: ATTEND Internal Medicine
DX: R13.10 Dysphagia, unspecified (principal)

== ENCOUNTER 2022-05-27 13:04 | Emergency (ER) | payer OTHER ==
[~2022-05-27] VITALS: Ht 162.6 cm; Wt 63.6 kg
[~2022-05-27 13:04] MED LIST changes: -BARIUM SULFATE 700 MG TABLET (E-Z-DISK) As Ordered ONE; -E-Z-PAQUE 96% w/w SUSP 176GM BTL As Ordered ONE; -VARIBAR NECTAR 40% w/v 240ML SUSP BTL As Ordered ONE; -VARIBAR PUDDING 40% w/v 230ML TUBE As Ordered ONE
[2022-05-27 13:17] VITALS: BP 124/67
== END 2022-05-27 20:05 | disposition home or self-care (01) ==
LOC: M ED 13:04 → EDBD 13:04 → M ED 20:05
DX: K94.29 Other complications of gastrostomy (principal); Z79.899 Other long term (current) drug therapy; Z79.84 Long term (current) use of oral hypoglycemic drugs; Z79.82 Long term (current) use of aspirin; Z79.4 Long term (current) use of insulin

== ENCOUNTER → 2022-09-21 | Outpatient (REF) | payer OTHER ==
[2022-09-21 10:38] LABS: HEMATOCRIT 37.2 % (36.0-47.0); MEAN CORPUSCULAR HEMOGLOBIN 31.3 pg (27.0-33.0); MEAN CORPUSCULAR HGB CONC 32.3 g/dl (32.0-36.5); MEAN CORPUSCULAR VOLUME 97.1 fl (80.0-96.0); PLATELET COUNT, AUTOMATED 361 10^3/uL (150-450); RED BLOOD COUNT 3.83 10^6/uL (4.00-5.40); WHITE BLOOD COUNT 7.4 10^3/uL (4.0-10.0)
[2022-09-21 11:29] LABS: BLOOD UREA NITROGEN 21 MG/DL (9-23); CALCIUM LEVEL 9.6 MG/DL (8.5-10.1); CARBON DIOXIDE LEVEL 26 MMOL/L (20-31); CHLORIDE LEVEL 102 MMOL/L (98-107); CREATININE FOR GFR 0.62 MG/DL (0.55-1.30); GLOMERULAR FILTRATION RATE > 60.0 (>51); GLUCOSE, FASTING 205 MG/DL (60-100); POTASSIUM SERUM 4.2 MMOL/L (3.5-5.1); SODIUM LEVEL 140 MMOL/L (136-145)
== END ==
PROVIDERS: ATTEND Internal Medicine
DX: E11.9 Type 2 diabetes mellitus without complications (principal)

== ENCOUNTER → 2022-09-28 | Outpatient (REF) | payer OTHER ==
[2022-09-28 12:04] LABS: HEMATOCRIT 39.8 % (36.0-47.0); HEMOGLOBIN 12.5 g/dl (12.0-15.5); MEAN CORPUSCULAR HEMOGLOBIN 30.9 pg (27.0-33.0); MEAN CORPUSCULAR HGB CONC 31.4 g/dl (32.0-36.5); MEAN CORPUSCULAR VOLUME 98.3 fl (80.0-96.0); PLATELET COUNT, AUTOMATED 365 10^3/uL (150-450); RED BLOOD COUNT 4.05 10^6/uL (4.00-5.40); WHITE BLOOD COUNT 7.5 10^3/uL (4.0-10.0)
[2022-09-28 13:29] LABS: BLOOD UREA NITROGEN 21 MG/DL (9-23); CALCIUM LEVEL 9.5 MG/DL (8.5-10.1); CARBON DIOXIDE LEVEL 27 MMOL/L (20-31); CHLORIDE LEVEL 102 MMOL/L (98-107); CREATININE FOR GFR 0.72 MG/DL (0.55-1.30); GLOMERULAR FILTRATION RATE > 60.0 (>51); GLUCOSE, FASTING 187 MG/DL (60-100); SODIUM LEVEL 138 MMOL/L (136-145)
== END ==
PROVIDERS: ATTEND Internal Medicine
DX: E11.9 Type 2 diabetes mellitus without complications (principal)

== ENCOUNTER → 2022-10-05 | Outpatient (REF) | payer OTHER ==
[2022-10-05 12:26] LABS: HEMATOCRIT 40.1 % (36.0-47.0); MEAN CORPUSCULAR HEMOGLOBIN 31.5 pg (27.0-33.0); MEAN CORPUSCULAR HGB CONC 32.4 g/dl (32.0-36.5); MEAN CORPUSCULAR VOLUME 97.1 fl (80.0-96.0); PLATELET COUNT, AUTOMATED 354 10^3/uL (150-450); RED BLOOD COUNT 4.13 10^6/uL (4.00-5.40); WHITE BLOOD COUNT 7.5 10^3/uL (4.0-10.0)
[2022-10-05 13:49] LABS: BLOOD UREA NITROGEN 26 MG/DL (9-23); CALCIUM LEVEL 9.8 MG/DL (8.5-10.1); CARBON DIOXIDE LEVEL 26 MMOL/L (20-31); CHLORIDE LEVEL 102 MMOL/L (98-107); GLOMERULAR FILTRATION RATE > 60.0 (>51); GLUCOSE, FASTING 156 MG/DL (60-100); POTASSIUM SERUM 4.5 MMOL/L (3.5-5.1); SODIUM LEVEL 137 MMOL/L (136-145)
== END ==
PROVIDERS: ATTEND Internal Medicine
DX: E11.9 Type 2 diabetes mellitus without complications (principal)

== ENCOUNTER → 2022-11-09 | Outpatient (REF) | payer OTHER ==
[2022-11-09 11:27] LABS: HEMATOCRIT 43.5 % (36.0-47.0); HEMOGLOBIN 13.9 g/dl (12.0-15.5); MEAN CORPUSCULAR HEMOGLOBIN 31.2 pg (27.0-33.0); MEAN CORPUSCULAR VOLUME 97.5 fl (80.0-96.0); PLATELET COUNT, AUTOMATED 355 10^3/uL (150-450); RED BLOOD COUNT 4.46 10^6/uL (4.00-5.40); WHITE BLOOD COUNT 7.4 10^3/uL (4.0-10.0)
[2022-11-09 11:56] LABS: BLOOD UREA NITROGEN 23 MG/DL (9-23); CALCIUM LEVEL 9.9 MG/DL (8.5-10.1); CARBON DIOXIDE LEVEL 30 MMOL/L (20-31); CHLORIDE LEVEL 102 MMOL/L (98-107); CREATININE FOR GFR 0.76 MG/DL (0.55-1.30); GLOMERULAR FILTRATION RATE > 60.0 (>51); GLUCOSE, FASTING 128 MG/DL (60-100); POTASSIUM SERUM 4.7 MMOL/L (3.5-5.1); SODIUM LEVEL 139 MMOL/L (136-145)
== END ==
PROVIDERS: ATTEND Internal Medicine
DX: E11.9 Type 2 diabetes mellitus without complications (principal)

== ENCOUNTER → 2022-11-23 | Outpatient (REF) | payer OTHER ==
[2022-11-23 09:49] LABS: HEMATOCRIT 39.3 % (36.0-47.0); HEMOGLOBIN 12.6 g/dl (12.0-15.5); MEAN CORPUSCULAR HGB CONC 32.1 g/dl (32.0-36.5); MEAN CORPUSCULAR VOLUME 96.6 fl (80.0-96.0); PLATELET COUNT, AUTOMATED 282 10^3/uL (150-450); RED BLOOD COUNT 4.07 10^6/uL (4.00-5.40); WHITE BLOOD COUNT 8.5 10^3/uL (4.0-10.0)
[2022-11-23 10:21] LABS: BLOOD UREA NITROGEN 25 MG/DL (9-23); CALCIUM LEVEL 9.2 MG/DL (8.5-10.1); CARBON DIOXIDE LEVEL 25 MMOL/L (20-31); CHLORIDE LEVEL 106 MMOL/L (98-107); CREATININE FOR GFR 0.67 MG/DL (0.55-1.30); GLOMERULAR FILTRATION RATE > 60.0 (>51); GLUCOSE, FASTING 255 MG/DL (60-100); POTASSIUM SERUM 4.1 MMOL/L (3.5-5.1); SODIUM LEVEL 140 MMOL/L (136-145)
== END ==
PROVIDERS: ATTEND Physician Assistant
DX: I10 Essential (primary) hypertension (principal)

== ENCOUNTER → 2022-12-07 | Outpatient (REF) | payer OTHER ==
[2022-12-07 11:26] LABS: HEMATOCRIT 39.1 % (36.0-47.0); HEMOGLOBIN 12.6 g/dl (12.0-15.5); MEAN CORPUSCULAR HEMOGLOBIN 31.2 pg (27.0-33.0); MEAN CORPUSCULAR HGB CONC 32.2 g/dl (32.0-36.5); MEAN CORPUSCULAR VOLUME 96.8 fl (80.0-96.0); PLATELET COUNT, AUTOMATED 267 10^3/uL (150-450); RED BLOOD COUNT 4.04 10^6/uL (4.00-5.40); WHITE BLOOD COUNT 6.4 10^3/uL (4.0-10.0)
[2022-12-07 11:47] LABS: BLOOD UREA NITROGEN 23 MG/DL (9-23); CALCIUM LEVEL 9.2 MG/DL (8.5-10.1); CARBON DIOXIDE LEVEL 26 MMOL/L (20-31); CHLORIDE LEVEL 104 MMOL/L (98-107); CREATININE FOR GFR 0.71 MG/DL (0.55-1.30); GLOMERULAR FILTRATION RATE > 60.0 (>51); GLUCOSE, FASTING 186 MG/DL (60-100); POTASSIUM SERUM 4.1 MMOL/L (3.5-5.1); SODIUM LEVEL 139 MMOL/L (136-145)
== END ==
PROVIDERS: ATTEND Physician Assistant
DX: I10 Essential (primary) hypertension (principal)

== ENCOUNTER → 2023-01-05 | Outpatient (REF) | payer OTHER ==
[2023-01-05 16:21] LABS: HEMATOCRIT 41.2 % (36.0-47.0); HEMOGLOBIN 13.2 g/dl (12.0-15.5); MEAN CORPUSCULAR HEMOGLOBIN 31.4 pg (27.0-33.0); MEAN CORPUSCULAR VOLUME 97.9 fl (80.0-96.0); PLATELET COUNT, AUTOMATED 281 10^3/uL (150-450); RED BLOOD COUNT 4.21 10^6/uL (4.00-5.40); WHITE BLOOD COUNT 8.4 10^3/uL (4.0-10.0)
[2023-01-05 16:52] LABS: BLOOD UREA NITROGEN 22 MG/DL (9-23); CARBON DIOXIDE LEVEL 25 MMOL/L (20-31); CHLORIDE LEVEL 104 MMOL/L (98-107); CREATININE FOR GFR 0.96 MG/DL (0.55-1.30); GLOMERULAR FILTRATION RATE > 60.0 (>51); GLUCOSE, FASTING 213 MG/DL (60-100); POTASSIUM SERUM 4.7 MMOL/L (3.5-5.1); SODIUM LEVEL 139 MMOL/L (136-145)
== END ==
PROVIDERS: ATTEND Physician Assistant
DX: R05.9 Cough, unspecified (principal)

== ENCOUNTER → 2023-01-11 | Outpatient (REF) | payer OTHER ==
[2023-01-11 11:50] LABS: HEMATOCRIT 41.6 % (36.0-47.0); HEMOGLOBIN 13.2 g/dl (12.0-15.5); MEAN CORPUSCULAR HEMOGLOBIN 31.1 pg (27.0-33.0); MEAN CORPUSCULAR HGB CONC 31.7 g/dl (32.0-36.5); MEAN CORPUSCULAR VOLUME 97.9 fl (80.0-96.0); PLATELET COUNT, AUTOMATED 312 10^3/uL (150-450); RED BLOOD COUNT 4.25 10^6/uL (4.00-5.40); WHITE BLOOD COUNT 7.3 10^3/uL (4.0-10.0)
[2023-01-11 12:18] LABS: BLOOD UREA NITROGEN 21 MG/DL (9-23); CALCIUM LEVEL 9.2 MG/DL (8.5-10.1); CARBON DIOXIDE LEVEL 28 MMOL/L (20-31); CHLORIDE LEVEL 106 MMOL/L (98-107); CREATININE FOR GFR 0.72 MG/DL (0.55-1.30); GLOMERULAR FILTRATION RATE > 60.0 (>51); GLUCOSE, FASTING 144 MG/DL (60-100); POTASSIUM SERUM 4.2 MMOL/L (3.5-5.1); SODIUM LEVEL 141 MMOL/L (136-145)
== END ==
PROVIDERS: ATTEND Physician Assistant
DX: I10 Essential (primary) hypertension (principal)

== ENCOUNTER → 2023-02-06 | Outpatient (REF) | payer OTHER | PROVIDERS: ATTEND Physician Assistant | DX: I10 Essential (primary) hypertension (principal); Z53.8 Procedure and treatment not carried out for other reasons ==

== ENCOUNTER → 2023-02-08 | Outpatient (REF) | payer OTHER ==
[2023-02-08 09:25] LABS: HEMATOCRIT 41.1 % (36.0-47.0); HEMOGLOBIN 12.9 g/dl (12.0-15.5); MEAN CORPUSCULAR HEMOGLOBIN 31.6 pg (27.0-33.0); MEAN CORPUSCULAR HGB CONC 31.4 g/dl (32.0-36.5); MEAN CORPUSCULAR VOLUME 100.7 fl (80.0-96.0); PLATELET COUNT, AUTOMATED 280 10^3/uL (150-450); RED BLOOD COUNT 4.08 10^6/uL (4.00-5.40); WHITE BLOOD COUNT 7.9 10^3/uL (4.0-10.0)
[2023-02-08 09:46] LABS: HEMOGLOBIN A1c 7.6 % (4.0-6.0)
[2023-02-08 09:52] LABS: BLOOD UREA NITROGEN 36 MG/DL (9-23); CALCIUM LEVEL 9.4 MG/DL (8.5-10.1); CARBON DIOXIDE LEVEL 27 MMOL/L (20-31); CHLORIDE LEVEL 108 MMOL/L (98-107); CREATININE FOR GFR 1.01 MG/DL (0.55-1.30); GLOMERULAR FILTRATION RATE > 60.0 (>51); GLUCOSE, FASTING 157 MG/DL (60-100); POTASSIUM SERUM 4.4 MMOL/L (3.5-5.1); SODIUM LEVEL 140 MMOL/L (136-145)
== END ==
PROVIDERS: ATTEND Physician Assistant
DX: I10 Essential (primary) hypertension (principal)

== ENCOUNTER → 2023-05-10 | Outpatient (REF) | payer OTHER ==
[2023-05-10 09:02] LABS: HEMOGLOBIN A1c 7.2 % (4.0-6.0)
== END ==
PROVIDERS: ATTEND Internal Medicine
DX: E11.9 Type 2 diabetes mellitus without complications (principal); D64.9 Anemia, unspecified

== ENCOUNTER → 2023-06-05 | Outpatient (REF) | payer OTHER ==
[~2023-06-05] MED LIST changes: -GABA-283 PO; +GABA-284 PO
[2023-06-05 08:20] LABS: HEMATOCRIT 44.8 % (36.0-47.0); HEMOGLOBIN 13.9 g/dl (12.0-15.5); MEAN CORPUSCULAR HEMOGLOBIN 29.7 pg (27.0-33.0); MEAN CORPUSCULAR VOLUME 95.7 fl (80.0-96.0); PLATELET COUNT, AUTOMATED 329 10^3/uL (150-450); RED BLOOD COUNT 4.68 10^6/uL (4.00-5.40); WHITE BLOOD COUNT 6.7 10^3/uL (4.0-10.0)
[2023-06-05 08:51] LABS: BLOOD UREA NITROGEN 22 MG/DL (9-23); CALCIUM LEVEL 9.3 MG/DL (8.5-10.1); CARBON DIOXIDE LEVEL 28 MMOL/L (20-31); CHLORIDE LEVEL 106 MMOL/L (98-107); CREATININE FOR GFR 0.75 MG/DL (0.55-1.30); GLOMERULAR FILTRATION RATE > 60.0 (>51); GLUCOSE, FASTING 116 MG/DL (60-100); POTASSIUM SERUM 4.2 MMOL/L (3.5-5.1); SODIUM LEVEL 139 MMOL/L (136-145)
== END ==
PROVIDERS: ATTEND Internal Medicine
DX: E11.9 Type 2 diabetes mellitus without complications (principal)

== ENCOUNTER → 2023-07-14 | Outpatient (REF) | payer OTHER | PROVIDERS: ATTEND Internal Medicine | DX: R05.9 Cough, unspecified (principal) ==

== ENCOUNTER → 2023-08-09 | Outpatient (REF) | payer OTHER ==
[2023-08-09 11:42] LABS: HEMOGLOBIN A1c 6.7 % (4.0-6.0)
== END ==
PROVIDERS: ATTEND Internal Medicine
DX: E11.9 Type 2 diabetes mellitus without complications (principal)

== ENCOUNTER → 2023-10-11 | Outpatient (REF) | payer OTHER ==
[~2023-10-11] MED LIST changes: -INSU100I34 SQ; +INSU100I59 SQ
[2023-10-11 11:50] LABS: HEMATOCRIT 41.8 % (36.0-47.0); HEMOGLOBIN 13.2 g/dl (12.0-15.5); MEAN CORPUSCULAR HEMOGLOBIN 29.9 pg (27.0-33.0); MEAN CORPUSCULAR HGB CONC 31.6 g/dl (32.0-36.5); MEAN CORPUSCULAR VOLUME 94.6 fl (80.0-96.0); PLATELET COUNT, AUTOMATED 281 10^3/uL (150-450); RED BLOOD COUNT 4.42 10^6/uL (4.00-5.40); WHITE BLOOD COUNT 6.6 10^3/uL (4.0-10.0)
[2023-10-11 12:21] LABS: BLOOD UREA NITROGEN 16 MG/DL (9-23); CALCIUM LEVEL 9.1 MG/DL (8.5-10.1); CARBON DIOXIDE LEVEL 22 MMOL/L (20-31); CHLORIDE LEVEL 107 MMOL/L (98-107); CREATININE FOR GFR 0.73 MG/DL (0.55-1.30); GLOMERULAR FILTRATION RATE > 60.0 (>51); GLUCOSE, FASTING 191 MG/DL (60-100); SODIUM LEVEL 138 MMOL/L (136-145)
== END ==
PROVIDERS: ATTEND Physician Assistant
DX: E11.9 Type 2 diabetes mellitus without complications (principal)

== ENCOUNTER → 2023-11-09 | Outpatient (CLI) | payer OTHER | LOC: M RAD 12:06 | PROVIDERS: ATTEND Internal Medicine | DX: I70.219 Atherosclerosis of native arteries of extremities with intermittent claudication, unspecified extremity (principal) ==

== ENCOUNTER → 2023-11-15 | Outpatient (REF) | payer OTHER ==
[2023-11-15 11:37] LABS: HEMOGLOBIN A1c 7.4 % (4.0-6.0)
== END ==
PROVIDERS: ATTEND Internal Medicine
DX: I10 Essential (primary) hypertension (principal)

== ENCOUNTER → 2024-02-09 | Outpatient (REF) | payer OTHER | PROVIDERS: ATTEND Internal Medicine | DX: I10 Essential (primary) hypertension (principal); Z53.8 Procedure and treatment not carried out for other reasons ==

== ENCOUNTER → 2024-02-12 | Outpatient (REF) | payer OTHER ==
[2024-02-12 11:42] LABS: HEMATOCRIT 40.7 % (36.0-47.0); MEAN CORPUSCULAR HGB CONC 31.9 g/dl (32.0-36.5); MEAN CORPUSCULAR VOLUME 96.9 fl (80.0-96.0); PLATELET COUNT, AUTOMATED 293 10^3/uL (150-450); WHITE BLOOD COUNT 6.8 10^3/uL (4.0-10.0)
[2024-02-12 11:53] LABS: HEMOGLOBIN A1c 6.5 % (4.0-6.0)
[2024-02-12 12:04] LABS: BLOOD UREA NITROGEN 26 MG/DL (9-23); CALCIUM LEVEL 8.8 MG/DL (8.5-10.1); CARBON DIOXIDE LEVEL 24 MMOL/L (20-31); CHLORIDE LEVEL 103 MMOL/L (98-107); CREATININE FOR GFR 0.88 MG/DL (0.55-1.30); GLOMERULAR FILTRATION RATE > 60.0 (>51); GLUCOSE, FASTING 155 MG/DL (60-100); POTASSIUM SERUM 4.3 MMOL/L (3.5-5.1); SODIUM LEVEL 136 MMOL/L (136-145)
== END ==
PROVIDERS: ATTEND Physician Assistant
DX: I10 Essential (primary) hypertension (principal)

== ENCOUNTER → 2024-02-14 | Outpatient (REF) | payer OTHER | PROVIDERS: ATTEND Physician Assistant | DX: R09.89 Other specified symptoms and signs involving the circulatory and respiratory systems (principal) ==

== ENCOUNTER → 2024-07-05 | Outpatient (CLI) | payer OTHER | LOC: M RAD 16:39 | PROVIDERS: ATTEND Internal Medicine | DX: Z12.2 Encounter for screening for malignant neoplasm of respiratory organs (principal); F17.211 Nicotine dependence, cigarettes, in remission; R91.1 Solitary pulmonary nodule; I70.0 Atherosclerosis of aorta ==

== ENCOUNTER → 2024-07-24 | Outpatient (CLI) | payer OTHER | LOC: M WHC 07:01 | PROVIDERS: ATTEND Internal Medicine | DX: Z12.31 Encounter for screening mammogram for malignant neoplasm of breast (principal); R92.323 Mammographic fibroglandular density, bilateral breasts; N63.42 Unspecified lump in left breast, subareolar ==

== ENCOUNTER → 2024-08-13 | Outpatient (CLI) | payer OTHER | LOC: M WHC 10:10 | PROVIDERS: ATTEND Internal Medicine | DX: R92.2 Inconclusive mammogram (principal) ==

== ENCOUNTER → 2024-08-22 | Outpatient (CLI) | payer OTHER ==
[2024-08-22 09:37] VITALS: TEMP 99.3
[2024-08-22 11:08] VITALS: BP 132/84; O2SAT 100
== END ==
LOC: M WHCPRO 09:24
PROVIDERS: ATTEND Internal Medicine
DX: R92.8 Other abnormal and inconclusive findings on diagnostic imaging of breast (principal); N63.21 Unspecified lump in the left breast, upper outer quadrant; N63.42 Unspecified lump in left breast, subareolar; D24.2 Benign neoplasm of left breast

== ENCOUNTER → 2025-06-03 | Outpatient (CLI) | payer OTHER ==
[~2025-06-03] MED LIST changes: +MELA5TAB44 PO; -MELA5TAB7 PO; -MYCO15CR TOP; +NYST15CR12 TOP
== END ==
LOC: M WUC 09:48
PROVIDERS: ATTEND Internal Medicine
DX: M47.816 Spondylosis without myelopathy or radiculopathy, lumbar region (principal); M54.50 Low back pain, unspecified; M79.604 Pain in right leg; M79.605 Pain in left leg

== ENCOUNTER → 2025-08-15 | Outpatient (CLI) | payer OTHER | LOC: M WHC 07:44 | PROVIDERS: ATTEND Internal Medicine | DX: Z12.31 Encounter for screening mammogram for malignant neoplasm of breast (principal) ==

== ENCOUNTER → 2025-08-29 | Outpatient (CLI) | payer OTHER | LOC: M RAD 15:36 | PROVIDERS: ATTEND Pain Medicine Interventional Pain Medicine | DX: M54.16 Radiculopathy, lumbar region (principal) ==

== ENCOUNTER 2025-09-24 13:01 | Inpatient (IN) | payer OTHER ==
[~2025-09-24] VITALS: Ht 162.6 cm; Wt 77.7 kg
[2025-09-24] VITALS (9 sets, daily range): BP systolic 128–147; BP diastolic 60–70; TEMP 97.6–99.7; O2SAT 96–100
[2025-09-24 13:53] LABS: BASO # 0.1 10^3/uL (0.0-0.2); BASO % 0.5 % (0.0-1.0); EOS # 0.0 10^3/uL (0.0-0.5); EOS % 0.2 % (0.0-3.0); LYMPH # 1.3 10^3/uL (1.5-5.0); LYMPH % 6.9 % (24.0-44.0); MONO # 0.6 10^3/uL (0.0-0.8); MONO % 3.1 % (2.0-8.0); NEUTROPHILS # 16.1 10^3/uL (1.5-8.5); NEUTROPHILS % 88.5 % (36.0-66.0); PLATELET COUNT, AUTOMATED 524 10^3/uL (150-450)
[2025-09-24 14:15] LABS: ALT/SGPT 19 U/L (7.0-40); AST/SGOT 31 U/L (<34); CALCIUM LEVEL 9.2 MG/DL (8.5-10.1); CARBON DIOXIDE LEVEL 13 MMOL/L (20-31); CHLORIDE LEVEL 109 MMOL/L (98-107); CREATININE FOR GFR 1.61 MG/DL (0.55-1.30); FREE T4 1.08 NG/DL (0.89-1.76); GLOMERULAR FILTRATION RATE 37.6 (>51); POTASSIUM SERUM 6.1 MMOL/L (3.5-5.1); SODIUM LEVEL 141 MMOL/L (136-145)
[2025-09-24] MEDS ORDERED: DULO1CAP4 PO (14:16)
[2025-09-24] MEDS ORDERED: CLOP75TA2 PO (14:16)
[2025-09-24] MEDS ORDERED: ASPI-226 PO (14:16)
[2025-09-24] MEDS ORDERED: AMLO1TAB24 PO (14:16)
[2025-09-24] MEDS ORDERED: METF500T13 PO (14:16)
[2025-09-24] MEDS ORDERED: PANT20TA6 PO (14:16)
[2025-09-24] MEDS ORDERED: JARD1TAB3 PO (14:16)
[2025-09-24] MEDS ORDERED: GABA-1172 PO (14:16)
[2025-09-24] MEDS ORDERED: ACET-1515 PO (14:22)
[2025-09-24] MEDS ORDERED: HOME MED LIST COMPLETE! XX SCH (14:25)
[2025-09-24] MEDS ORDERED: ISOVUE-370 76% 100 ML VIAL As Ordered ONE (14:35)
[2025-09-24 14:42] LABS: OSMOLALITY SERUM 331 MOSM/KG (275-295)
[2025-09-24 14:45] LABS: MAGNESIUM LEVEL 2.3 MG/DL (1.8-2.4)
[2025-09-24 14:46] LABS: ACETONE/KETONE 0.58 MMOL/L (0.02-0.27)
[2025-09-24 14:57] LABS: PLATELET COUNT, AUTOMATED 544 10^3/uL (150-450)
[2025-09-24 15:18] LABS: VENOUS BASE EXCESS -9.2 (-2.0-2.0); VENOUS HCO3 17.1 MMOL/L (23.0-27.0); VENOUS O2 SATURATION 62.7 % (60.0-80.0); VENOUS PARTIAL PRESSURE CO2 39.1 mmHg (38.0-50.0); VENOUS PARTIAL PRESSURE O2 39.2 mmHg (30.0-50.0); VENOUS PH 7.258 UNITS (7.330-7.430); VENOUS STANDARD HCO3 16.5 MMOL/L; VENOUS TOTAL CO2 18.3 MMOL/L (24.0-28.0)
[2025-09-24] MEDS: PATIROMER SORBITEX CALCIUM 8.4GM POWDER PACKET PO ONE (15:24)
[2025-09-24] MEDS: CALCIUM CHLORIDE 10% 1 GM/10 ML SYR IV ONE (15:25)
[2025-09-24] MEDS: SODIUM BICARBONATE 8.4% INJ 50ML SYRINGE IV ONE (15:25)
[2025-09-24] MEDS: HumuLIN R (REGULAR) INSULIN (NovoLIN R) **100 U/ML** PER UNIT IV ONE (15:25)
[2025-09-24] MEDS: DEXTROSE 50% 50 ML SYRINGE IV ONE (15:25)
[2025-09-24] MEDS: NS (Normal Saline) 0.9% 1,000 ML IV SCH (15:25)
[2025-09-24 15:46] LABS: INR 1.06
[2025-09-24] MEDS: [UNRECOGNIZED DRUG - OTHER] IV ONE (16:27)
[2025-09-24] MEDS: NS 0.9% IV ONE (16:27)
[2025-09-24 16:41] LABS: KETONE, URINE AUTO RFX NEGATIVE (NEGATIVE); LEUKOCYTE ESTERASE UR AUTO RFX NEGATIVE (NEGATIVE); MUCUS, URINE RFX SMALL (NEGATIVE); RBC, URINE AUTO RFX 1 /HPF (0-3); SQUAM EPITHELIAL CELL UR AURFX 0 /HPF (0-6); WBC, URINE AUTO RFX 1 /HPF (0-3)
[2025-09-24 16:45] LABS: NITRITE, URINE AUTO RFX POSITIVE (NEGATIVE)
[2025-09-24] MEDS: cefTRIAXone SOD 2 GM in DEXTROSE 5% (D5W) ADV/MINI-BAG 50 ML IV ONE (16:51)
[2025-09-24 17:40] LABS: VENOUS BASE EXCESS -3.9 (-2.0-2.0); VENOUS HCO3 21.4 MMOL/L (23.0-27.0); VENOUS O2 SATURATION 43.0 % (60.0-80.0); VENOUS PARTIAL PRESSURE CO2 40.0 mmHg (38.0-50.0); VENOUS PARTIAL PRESSURE O2 27.2 mmHg (30.0-50.0); VENOUS PH 7.347 UNITS (7.330-7.430); VENOUS STANDARD HCO3 20.6 MMOL/L; VENOUS TOTAL CO2 22.7 MMOL/L (24.0-28.0)
[2025-09-24 18:15] LABS: CALCIUM LEVEL 9.1 MG/DL (8.5-10.1); CARBON DIOXIDE LEVEL 23.0 MMOL/L (20-31); CHLORIDE LEVEL 110.0 MMOL/L (98-107); CREATININE FOR GFR 1.44 MG/DL (0.55-1.30); GLOMERULAR FILTRATION RATE 43.0 (>51); POTASSIUM SERUM 5.1 MMOL/L (3.5-5.1); SODIUM LEVEL 144.0 MMOL/L (136-145)
[2025-09-24] MEDS: INSULIN LISPRO (NovoLOG) PER UNIT SC SCH (21:00)
[2025-09-24 21:30] LABS: C REACTIVE PROTEIN QUANTITATIV < 0.50 MG/DL (<1.0)
[2025-09-24] MEDS ORDERED: DEXTROSE 50% 50 ML SYRINGE IV PRN (22:05)
[2025-09-24] MEDS ORDERED: GLUCOSE 4 GM CHEW PO PRN (22:05)
[2025-09-24] MEDS ORDERED: GLUCAGON INJ 1 MG VIAL SC PRN (22:05)
[2025-09-24] MEDS: PANTOPRAZOLE 40MG VIAL IV SCH (23:11)
[2025-09-24] MEDS: HEPARIN SOD 5000 UNITS/ML 1 ML VIAL/SYRINGE SQ SCH (23:12)
[2025-09-24] MEDS: ACETAMINOPHEN 650 MG ER TAB PO PRN (23:12)
[2025-09-24] MEDS: SUCRALFATE SUSP 1GM/10ML UD PO SCH (23:12)
[2025-09-24] MEDS: GABAPENTIN 300 MG CAP PO SCH (23:13)
[2025-09-24] MEDS: ATORVASTATIN 20 MG TAB PO SCH (23:13)
[2025-09-25] VITALS (8 sets, daily range): BP systolic 102–147; BP diastolic 55–72; TEMP 97.8–100.3; O2SAT 94–97
[2025-09-25 00:05] LABS: IRON (FE) 102.0 UG/DL (50-170); PERCENT SATURATION 28.1 % (13.2-45.0)
[2025-09-25 00:07] LABS: VITAMIN B12 LEVEL 468.0 PG/ML (211-911)
[2025-09-25 00:14] LABS: LDH LACTATE DEHYDROGENASE 247 U/L (120-246)
[2025-09-25 07:26] LABS: BASO # 0.1 10^3/uL (0.0-0.2); BASO % 0.4 % (0.0-1.0); EOS # 0.2 10^3/uL (0.0-0.5); EOS % 1.3 % (0.0-3.0); LYMPH # 1.9 10^3/uL (1.5-5.0); LYMPH % 16.6 % (24.0-44.0); MONO # 1.0 10^3/uL (0.0-0.8); MONO % 8.3 % (2.0-8.0); NEUTROPHILS # 8.4 10^3/uL (1.5-8.5); NEUTROPHILS % 73.1 % (36.0-66.0)
[2025-09-25 07:27] LABS: PLATELET COUNT, AUTOMATED 384 10^3/uL (150-450)
[2025-09-25] MEDS: INSULIN LISPRO (NovoLOG) PER UNIT SC SCH (07:30)
[2025-09-25 08:05] LABS: ALT/SGPT 34.0 U/L (7.0-40); AST/SGOT 167.0 U/L (<34); CALCIUM LEVEL 8.4 MG/DL (8.5-10.1); CARBON DIOXIDE LEVEL 22.0 MMOL/L (20-31); CHLORIDE LEVEL 110.0 MMOL/L (98-107); CREATININE FOR GFR 1.15 MG/DL (0.55-1.30); GLOMERULAR FILTRATION RATE 56.3 (>51); POTASSIUM SERUM 4.1 MMOL/L (3.5-5.1); SODIUM LEVEL 143.0 MMOL/L (136-145)
[2025-09-25] MEDS: CLOPIDOGREL 75 MG TAB PO SCH (08:32)
[2025-09-25] MEDS: ASPIRIN 81 MG ENTERIC TABLET PO SCH (08:32)
[2025-09-25] MEDS: MIRALAX *UNIT DOSE* 17 GM PACKET PO SCH (08:58)
[2025-09-25] MEDS: FERROUS GLUCONATE 324 MG TAB PO SCH (11:32)
[2025-09-25] MEDS: cefTRIAXone SOD 2 GM in DEXTROSE 5% (D5W) ADV/MINI-BAG 50 ML IV SCH (16:43)
[2025-09-26 03:42] VITALS: BP 150/71; TEMP 97.2; O2SAT 96
[2025-09-26 05:48] LABS: BASO # 0.1 10^3/uL (0.0-0.2); BASO % 0.9 % (0.0-1.0); EOS # 0.2 10^3/uL (0.0-0.5); EOS % 2.3 % (0.0-3.0); LYMPH # 2.7 10^3/uL (1.5-5.0); LYMPH % 28.0 % (24.0-44.0); MONO # 1.0 10^3/uL (0.0-0.8); MONO % 10.4 % (2.0-8.0); NEUTROPHILS # 5.6 10^3/uL (1.5-8.5); NEUTROPHILS % 57.9 % (36.0-66.0); PLATELET COUNT, AUTOMATED 356 10^3/uL (150-450)
[2025-09-26 06:18] LABS: ALT/SGPT 34.0 U/L (7.0-40); AST/SGOT 110.0 U/L (<34); CALCIUM LEVEL 8.2 MG/DL (8.5-10.1); CARBON DIOXIDE LEVEL 22.0 MMOL/L (20-31); CHLORIDE LEVEL 110.0 MMOL/L (98-107); CREATININE FOR GFR 1.03 MG/DL (0.55-1.30); GLOMERULAR FILTRATION RATE 64.2 (>51); POTASSIUM SERUM 4.2 MMOL/L (3.5-5.1); SODIUM LEVEL 141.0 MMOL/L (136-145)
[2025-09-26 07:02] VITALS: BP 140/68; TEMP 97.3; O2SAT 96
[2025-09-26 12:23] VITALS: BP 113/55; TEMP 98.1; O2SAT 96
[2025-09-26 15:58] VITALS: BP 119/62; TEMP 97.9; O2SAT 97
[2025-09-26] MEDS: GABAPENTIN 300 MG CAP PO SCH (16:25)
[2025-09-26 20:30] VITALS: BP 120/60; TEMP 98; O2SAT 96
[2025-09-27] VITALS (7 sets, daily range): BP systolic 124–152; BP diastolic 58–71; TEMP 96.7–97.9; O2SAT 96–98
[2025-09-27 01:22] LABS: Estimated Ave Glu(eAG) 9.0 mmol/L
[2025-09-27 06:08] LABS: BASO # 0.1 10^3/uL (0.0-0.2); BASO % 0.7 % (0.0-1.0); EOS # 0.3 10^3/uL (0.0-0.5); EOS % 3.9 % (0.0-3.0); LYMPH # 1.8 10^3/uL (1.5-5.0); LYMPH % 20.7 % (24.0-44.0); MONO # 1.0 10^3/uL (0.0-0.8); MONO % 10.9 % (2.0-8.0); NEUTROPHILS # 5.6 10^3/uL (1.5-8.5); NEUTROPHILS % 63.0 % (36.0-66.0); PLATELET COUNT, AUTOMATED 359 10^3/uL (150-450)
[2025-09-27 06:36] LABS: ALT/SGPT 33.0 U/L (7.0-40); AST/SGOT 77.0 U/L (<34); CALCIUM LEVEL 8.6 MG/DL (8.5-10.1); CARBON DIOXIDE LEVEL 23.0 MMOL/L (20-31); CHLORIDE LEVEL 108.0 MMOL/L (98-107); CREATININE FOR GFR 0.9 MG/DL (0.55-1.30); GLOMERULAR FILTRATION RATE 75.5 (>51); POTASSIUM SERUM 4.3 MMOL/L (3.5-5.1); SODIUM LEVEL 141.0 MMOL/L (136-145)
[2025-09-27] MEDS: PNEUMOC 21-VAL CONJ-DIP CRM/PF 0.5 ML SYRINGE IM.IMMUN ONE (09:17)
[2025-09-27] MEDS: FLUZONE VACCINE TRI PF(25-26) 0.5ML SYRINGE IM.IMMUN ONE (09:17)
[2025-09-27] MEDS: GABAPENTIN 300 MG CAP PO ONE (13:19)
[2025-09-27] MEDS: GABAPENTIN 300 MG CAP PO SCH (20:17)
[2025-09-28 04:47] VITALS: BP 141/63; TEMP 97.7; O2SAT 95
[2025-09-28 05:54] LABS: BASO # 0.1 10^3/uL (0.0-0.2); BASO % 0.6 % (0.0-1.0); EOS # 0.4 10^3/uL (0.0-0.5); EOS % 4.8 % (0.0-3.0); LYMPH # 1.8 10^3/uL (1.5-5.0); LYMPH % 21.2 % (24.0-44.0); MONO # 0.9 10^3/uL (0.0-0.8); MONO % 11.2 % (2.0-8.0); NEUTROPHILS # 5.1 10^3/uL (1.5-8.5); NEUTROPHILS % 61.6 % (36.0-66.0); PLATELET COUNT, AUTOMATED 389 10^3/uL (150-450)
[2025-09-28 06:31] LABS: ALT/SGPT 39.0 U/L (7.0-40); AST/SGOT 60.0 U/L (<34); CALCIUM LEVEL 8.8 MG/DL (8.5-10.1); CARBON DIOXIDE LEVEL 22.0 MMOL/L (20-31); CHLORIDE LEVEL 108.0 MMOL/L (98-107); CREATININE FOR GFR 0.89 MG/DL (0.55-1.30); GLOMERULAR FILTRATION RATE 76.5 (>51); POTASSIUM SERUM 4.4 MMOL/L (3.5-5.1); SODIUM LEVEL 142.0 MMOL/L (136-145)
[2025-09-28 07:28] VITALS: BP 144/63; TEMP 97.9; O2SAT 96
[2025-09-28] MEDS: CEFPODOXIME PROXETIL 200 MG TABLET PO SCH (10:27)
[2025-09-28 11:00] VITALS: BP 145/63; TEMP 98.1; O2SAT 98
[2025-09-28 17:05] VITALS: BP 164/79; TEMP 98; O2SAT 99
[2025-09-28 20:09] VITALS: BP 116/59; TEMP 97.1; O2SAT 97
[2025-09-28] MEDS: GABAPENTIN 300 MG CAP PO SCH (20:26)
[2025-09-29 00:28] VITALS: BP 114/55; TEMP 97.9; O2SAT 96
[2025-09-29 03:51] VITALS: BP 124/59; TEMP 97.7; O2SAT 94
[2025-09-29 06:14] LABS: BASO # 0.1 10^3/uL (0.0-0.2); BASO % 0.7 % (0.0-1.0); EOS # 0.4 10^3/uL (0.0-0.5); EOS % 4.7 % (0.0-3.0); LYMPH # 2.0 10^3/uL (1.5-5.0); LYMPH % 22.6 % (24.0-44.0); MONO # 1.1 10^3/uL (0.0-0.8); MONO % 12.2 % (2.0-8.0); NEUTROPHILS # 5.4 10^3/uL (1.5-8.5); NEUTROPHILS % 59.4 % (36.0-66.0); PLATELET COUNT, AUTOMATED 406 10^3/uL (150-450)
[2025-09-29 06:47] LABS: ALT/SGPT 40.0 U/L (7.0-40); AST/SGOT 45.0 U/L (<34); CALCIUM LEVEL 8.8 MG/DL (8.5-10.1); CARBON DIOXIDE LEVEL 24.0 MMOL/L (20-31); CHLORIDE LEVEL 105.0 MMOL/L (98-107); CREATININE FOR GFR 0.91 MG/DL (0.55-1.30); GLOMERULAR FILTRATION RATE 74.5 (>51); POTASSIUM SERUM 4.4 MMOL/L (3.5-5.1); SODIUM LEVEL 138.0 MMOL/L (136-145)
[2025-09-29 08:12] VITALS: BP 104/59; TEMP 98.2; O2SAT 99
[2025-09-29 11:51] VITALS: BP 167/73; TEMP 97.2; O2SAT 98
[2025-09-29] MEDS ORDERED: FERR32TA PO (15:21)
[2025-09-29] MEDS ORDERED: CEFP200T PO (15:21)
[2025-09-29] MEDS ORDERED: PANT20TA6 PO (15:21)
[2025-09-30 15:18] LABS: SOLUBLE TRANSFERRIN RECEPTOR 5.66 mg/L (0.76-1.76)
== END 2025-09-29 17:43 | disposition home or self-care (01) | DRG 720 ==
LOC: M ED 13:01 → EDBD 13:01 → M ED INP 19:13 → M PCU 21:50
PROVIDERS: ADMIT Internal Medicine; ATTEND Student in an Organized Health Care Education/Training Program
DX: A41.9 Sepsis, unspecified organism (principal); N17.9 Acute kidney failure, unspecified; I67.5 Moyamoya disease; E87.20 Acidosis, unspecified; E11.42 Type 2 diabetes mellitus with diabetic polyneuropathy; E87.5 Hyperkalemia; I65.23 Occlusion and stenosis of bilateral carotid arteries; E78.5 Hyperlipidemia, unspecified; R65.20 Severe sepsis without septic shock; I10 Essential (primary) hypertension; M48.061 Spinal stenosis, lumbar region without neurogenic claudication; R53.1 Weakness; N39.0 Urinary tract infection, site not specified; D63.8 Anemia in other chronic diseases classified elsewhere; D50.9 Iron deficiency anemia, unspecified; K59.00 Constipation, unspecified; Z66 Do not resuscitate; Z79.84 Long term (current) use of oral hypoglycemic drugs; B96.20 Unspecified Escherichia coli [E. coli] as the cause of diseases classified elsewhere; Z79.02 Long term (current) use of antithrombotics/antiplatelets; Z79.899 Other long term (current) drug therapy; Z79.82 Long term (current) use of aspirin; Z87.891 Personal history of nicotine dependence